=== PATIENT | female | born 1945 | race Caucasian/White ===

== ENCOUNTER 2017-09-16 09:38 | Day surgery (SDC) | payer OTHER, SELFPAY ==
[~2017-09-16] VITALS: Ht 152.4 cm; Wt 62.6 kg
[~2017-09-16 09:38] MED LIST: ALBU.083IS IH; ALBU90OI6 INH; ALPR.25; AMOCLA875 PO; ASPI81EC; AZIT250 PO; BENZ100A PO; Bactrim Ds Tab1 EACH PO; CODGUAEL PO; DICL250 PO; ERGO400 PO; FLUT.05NI; GAVILAX17 GM PO; HYDACE5 PO; HYDACE5325 PO; HYDCHL25 PO; HYDCHL50 PO; IBUP800; LAVAP17G; LISHYD2025; LISI20; LISI20 PO; LOSARTAN-HCTZ1 EACH PO; LOSHYD; LOSHYD PO; LOVA40; METF500 PO; METF850; MUPI2TC TOP; NYST100TC TOP; NYSTRI30T TOP; OMEPRAZOLE MAGN20 MG PO; ONDA8ODT MM; POLY17UD PO; PRAV20 PO; PRED20 PO; Prilosec Otc20 MG; SIMV40 PO; [UNRECOGNIZED DRUG - REMARK]; [UNRECOGNIZED DRUG - REMARK]; [UNRECOGNIZED DRUG - REMARK]
[2017-09-16] MEDS ORDERED: CEPH125SU (10:17)
[2017-09-16] MEDS ORDERED: TRAZ50 (10:18)
== END 2017-09-16 12:03 | disposition home or self-care (01) ==
LOC: ORSCSDS 09:38
PROVIDERS: Internal Medicine Gastroenterology
PROC: 0DB38ZX Excision of Lower Esophagus, Via Natural or Artificial Opening Endoscopic, Diagnostic (ICD-10-PCS; principal; 2017-09-16 10:45)
PROC: 0DB18ZX Excision of Upper Esophagus, Via Natural or Artificial Opening Endoscopic, Diagnostic (ICD-10-PCS; principal; 2017-09-16 10:45)
PROC: 0D758ZZ Dilation of Esophagus, Via Natural or Artificial Opening Endoscopic (ICD-10-PCS; principal; 2017-09-16 10:45)
DX: R13.10 Dysphagia, unspecified (principal); K64.8 Other hemorrhoids; C88.4 Extranodal marginal zone B-cell lymphoma of mucosa-associated lymphoid tissue [MALT-lymphoma]; K21.9 Gastro-esophageal reflux disease without esophagitis; E78.5 Hyperlipidemia, unspecified; I10 Essential (primary) hypertension; E11.9 Type 2 diabetes mellitus without complications; D64.9 Anemia, unspecified; E03.9 Hypothyroidism, unspecified; Z86.73 Personal history of transient ischemic attack (TIA), and cerebral infarction without residual deficits; Z87.891 Personal history of nicotine dependence; Z79.899 Other long term (current) drug therapy
CPT/HCPCS: 88305

== ENCOUNTER → 2017-11-22 | Outpatient (CLI) | payer OTHER, SELFPAY ==
[~2017-11-22] MED LIST changes: +ACIDOPHILUS1 EAC1 PO; +Augmentin 875-1 EACH PO; +CEPH125SU; +Norco 5-325 Ta1 EACH PO; +TRAZ50; +Zofran4 MG PO
== END | disposition home or self-care (01) ==
LOC: LAB 10:18
DX: A04.8 Other specified bacterial intestinal infections (principal); B96.81 Helicobacter pylori [H. pylori] as the cause of diseases classified elsewhere; R10.9 Unspecified abdominal pain
CPT/HCPCS: 87338

== ENCOUNTER 2017-11-27 11:47 | Emergency (ER) | payer OTHER, SELFPAY ==
[~2017-11-27] VITALS: Ht 152.4 cm; Wt 61.2 kg
[~2017-11-27 11:47] MED LIST changes: -ACIDOPHILUS1 EAC1 PO; -Augmentin 875-1 EACH PO; -Norco 5-325 Ta1 EACH PO; -Zofran4 MG PO
[2017-11-27 12:45] LABS: BASOPHILS ABSOLUTE AUTO 0.06 K/mm3 (0.00-0.23); BASOPHILS PERCENT AUTO 1 % (0-2); EOSINOPHILS ABSOLUTE AUTO 0.48 K/mm3 (0.00-0.68); EOSINOPHILS PERCENT AUTO 8 % (0-6); Hematocrit 36.9 % (33.0-51.0); Hemoglobin 12.5 g/dL (11.5-16.0); IMMATURE GRAN ABSOLUTE AUTO 0.02 K/mm3 (0.00-0.10); IMMATURE GRAN PERCENT AUTO 0 % (0-1); LYMPHOCYTES ABSOLUTE AUTO 1.26 K/mm3 (0.84-5.20); LYMPHOCYTES PERCENT AUTO 21 % (21-46); MONOCYTES ABSOLUTE AUTO 0.36 K/mm3 (0.16-1.47); MONOCYTES PERCENT AUTO 6 % (4-13); Mean Corpuscular HGB 28.7 pg (26.0-34.0); Mean Corpuscular HGB Conc 33.9 g/dL (31.5-36.5); Mean Corpuscular Volume 85 fL (80-100); Mean Platelet Volume 9.3 fL (9.1-12.4); NEUTROPHILS ABSOLUTE AUTO 3.85 K/mm3 (1.96-9.15); NEUTROPHILS PERCENT AUTO 64 % (41-73); Platelet Count 270 K/mm3 (150-400); RDW Coefficient Variation 13.8 % (11.7-14.2); RDW Standard Deviation 42.9 fL (35.1-46.3); Red Blood Cell Count 4.36 M/mm3 (3.80-5.20); White Blood Cell Count 6.03 K/mm3 (4.00-11.30)
[2017-11-27 12:59] LABS: Alanine Aminotransfer (ALT/SGP 59 U/L (12-78); Albumin, Blood 3.2 g/dL (3.4-5.0); Albumin/Globulin Ratio 0.6 (0.8-1.8); Alk Phos 173 U/L (50-136); Anion Gap 9 mmol/L (6-16); Aspartate Aminotrans (AST/SGOT 49 U/L (12-37); Bilirubin, Total 0.8 mg/dL (0.1-1.0); Blood Urea Nitrogen 14 mg/dL (8-24); Bun/Creatinine Ratio 21.6 (12.0-20.0); CO2, Blood 23 mmol/L (21-32); Calcium, Blood 9.2 mg/dL (8.5-10.1); Chloride, Blood 97 mmol/L (98-108); Creatinine, Blood 0.65 mg/dL (0.40-1.00); Globulin, Blood 5.7 g/dL (2.2-4.0); Glomerular Filtration Rate >60 (60-); Glucose, Blood 142 mg/dL (70-99); Potassium, Blood 3.7 mmol/L (3.5-5.5); Sodium, Blood 129 mmol/L (136-145); Total Protein, Blood 8.9 g/dL (6.4-8.2); Troponin I <0.015 ng/mL (0.000-0.040)
[2017-11-27] MEDS ORDERED: Zofran4 MG PO (13:51)
[2017-11-27] MEDS ORDERED: Norco 5-325 Ta1 EACH PO (14:08)
== END 2017-11-27 14:10 | disposition home or self-care (01) ==
LOC: ER 11:47
PROVIDERS: Emergency Medicine
DX: R10.10 Upper abdominal pain, unspecified (principal); C16.9 Malignant neoplasm of stomach, unspecified; I10 Essential (primary) hypertension; Z79.899 Other long term (current) drug therapy
CPT/HCPCS: 36415; 80053; 82272; 83690; 84484; 85025; 93005; 93010; 96361; 96374; 99283; J3010; J7120

== ENCOUNTER 2017-11-27 21:11 | Inpatient (IN) | payer OTHER, SELFPAY ==
[~2017-11-27] VITALS: Ht 152.4 cm; Wt 60.4 kg
[~2017-11-27 21:11] MED LIST changes: +Norco 5-325 Ta1 EACH PO; +Zofran4 MG PO
[2017-11-27 22:38] LABS: BASOPHILS ABSOLUTE AUTO 0.06 K/mm3 (0.00-0.23); BASOPHILS PERCENT AUTO 1 % (0-2); EOSINOPHILS ABSOLUTE AUTO 0.34 K/mm3 (0.00-0.68); EOSINOPHILS PERCENT AUTO 8 % (0-6); Hematocrit 33.6 % (33.0-51.0); Hemoglobin 11.5 g/dL (11.5-16.0); IMMATURE GRAN ABSOLUTE AUTO 0.01 K/mm3 (0.00-0.10); IMMATURE GRAN PERCENT AUTO 0 % (0-1); LYMPHOCYTES ABSOLUTE AUTO 1.32 K/mm3 (0.84-5.20); LYMPHOCYTES PERCENT AUTO 30 % (21-46); MONOCYTES ABSOLUTE AUTO 0.39 K/mm3 (0.16-1.47); MONOCYTES PERCENT AUTO 9 % (4-13); Mean Corpuscular HGB 28.8 pg (26.0-34.0); Mean Corpuscular HGB Conc 34.2 g/dL (31.5-36.5); Mean Corpuscular Volume 84 fL (80-100); Mean Platelet Volume 9.3 fL (9.1-12.4); NEUTROPHILS ABSOLUTE AUTO 2.33 K/mm3 (1.96-9.15); NEUTROPHILS PERCENT AUTO 52 % (41-73); Platelet Count 266 K/mm3 (150-400); RDW Coefficient Variation 13.9 % (11.7-14.2); RDW Standard Deviation 42.8 fL (35.1-46.3); White Blood Cell Count 4.45 K/mm3 (4.00-11.30)
[2017-11-27 22:53] LABS: Alanine Aminotransfer (ALT/SGP 50 U/L (12-78); Albumin, Blood 2.8 g/dL (3.4-5.0); Albumin/Globulin Ratio 0.5 (0.8-1.8); Alk Phos 144 U/L (50-136); Anion Gap 7 mmol/L (6-16); Aspartate Aminotrans (AST/SGOT 34 U/L (12-37); Bilirubin, Total 0.6 mg/dL (0.1-1.0); Blood Urea Nitrogen 13 mg/dL (8-24); CO2, Blood 25 mmol/L (21-32); Calcium, Blood 8.8 mg/dL (8.5-10.1); Chloride, Blood 102 mmol/L (98-108); Creatinine, Blood 0.72 mg/dL (0.40-1.00); Globulin, Blood 5.1 g/dL (2.2-4.0); Glomerular Filtration Rate >60 (60-); Glucose, Blood 109 mg/dL (70-99); Potassium, Blood 3.8 mmol/L (3.5-5.5); Sodium, Blood 134 mmol/L (136-145); Total Protein, Blood 7.9 g/dL (6.4-8.2)
[2017-11-29 04:54] LABS: BASOPHILS ABSOLUTE AUTO 0.05 K/mm3 (0.00-0.23); BASOPHILS PERCENT AUTO 1 % (0-2); EOSINOPHILS ABSOLUTE AUTO 0.23 K/mm3 (0.00-0.68); EOSINOPHILS PERCENT AUTO 6 % (0-6); Hematocrit 33.6 % (33.0-51.0); Hemoglobin 11.1 g/dL (11.5-16.0); IMMATURE GRAN PERCENT AUTO 0 % (0-1); LYMPHOCYTES ABSOLUTE AUTO 0.99 K/mm3 (0.84-5.20); LYMPHOCYTES PERCENT AUTO 27 % (21-46); MONOCYTES ABSOLUTE AUTO 0.27 K/mm3 (0.16-1.47); MONOCYTES PERCENT AUTO 7 % (4-13); Mean Corpuscular HGB 28.5 pg (26.0-34.0); Mean Corpuscular Volume 86 fL (80-100); Mean Platelet Volume 9.5 fL (9.1-12.4); NEUTROPHILS ABSOLUTE AUTO 2.19 K/mm3 (1.96-9.15); NEUTROPHILS PERCENT AUTO 59 % (41-73); Platelet Count 218 K/mm3 (150-400); RDW Coefficient Variation 14.3 % (11.7-14.2); RDW Standard Deviation 44.9 fL (35.1-46.3); White Blood Cell Count 3.73 K/mm3 (4.00-11.30)
[2017-11-29 05:13] LABS: Anion Gap 8 mmol/L (6-16); Blood Urea Nitrogen 6 mg/dL (8-24); Bun/Creatinine Ratio 8.7 (12.0-20.0); CO2, Blood 24 mmol/L (21-32); Calcium, Blood 8.5 mg/dL (8.5-10.1); Chloride, Blood 107 mmol/L (98-108); Creatinine, Blood 0.69 mg/dL (0.40-1.00); Glomerular Filtration Rate >60 (60-); Glucose, Blood 95 mg/dL (70-99); Potassium, Blood 3.7 mmol/L (3.5-5.5); Sodium, Blood 139 mmol/L (136-145)
[2017-11-29] MEDS ORDERED: ACIDOPHILUS1 EAC1 PO (14:30)
[2017-11-29] MEDS ORDERED: Augmentin 875-1 EACH PO (14:31)
== END 2017-11-29 14:50 | disposition home or self-care (01) | DRG 392 ==
LOC: ER 21:11 → MEDS 21:12 → ER 11-28 02:38 → MEDS 11-28 02:46 → ENPENDDIS 11-29 14:14 → MEDS 11-29 14:50
PROVIDERS: Emergency Medicine; Internal Medicine
DX: K52.9 Noninfective gastroenteritis and colitis, unspecified (principal); C16.9 Malignant neoplasm of stomach, unspecified; E87.1 Hypo-osmolality and hyponatremia; I10 Essential (primary) hypertension; E78.5 Hyperlipidemia, unspecified; R13.10 Dysphagia, unspecified; Z90.49 Acquired absence of other specified parts of digestive tract; Z87.891 Personal history of nicotine dependence; Z80.0 Family history of malignant neoplasm of digestive organs; Z79.899 Other long term (current) drug therapy
CPT/HCPCS: 36415; 74177; 80048; 80053; 83605; 83690; 83735; 85025; 96361; 96365; 96366; 96367; 96375; 99285; G0378; J0744; J2765; J7030; Q9967

== ENCOUNTER 2017-12-18 21:16 | Emergency (ER) | payer OTHER, SELFPAY ==
[~2017-12-18] VITALS: Ht 152.4 cm; Wt 59.9 kg
[~2017-12-18 21:16] MED LIST changes: +ACIDOPHILUS1 EAC1 PO; +Augmentin 875-1 EACH PO
[2017-12-18] MEDS ORDERED: BACL10 PO (21:23)
[2017-12-18] MEDS ORDERED: Prednisone20 MG PO (21:39)
== END 2017-12-18 21:38 | disposition home or self-care (01) ==
LOC: ER 21:16
DX: L50.1 Idiopathic urticaria (principal); Z79.899 Other long term (current) drug therapy; I10 Essential (primary) hypertension; Z87.891 Personal history of nicotine dependence
CPT/HCPCS: 99283; Q0163

== ENCOUNTER 2018-02-21 14:05 | Emergency (ER) | payer OTHER, SELFPAY ==
[~2018-02-21] VITALS: Ht 152.4 cm; Wt 59.9 kg
[~2018-02-21 14:05] MED LIST changes: +BACL10 PO; +ONDA4 PO; +Prednisone20 MG PO
[2018-02-21] MEDS ORDERED: CIPRO500 MG PO (14:32)
[2018-02-21 15:08] LABS: BASOPHILS ABSOLUTE AUTO 0.04 K/mm3 (0.00-0.23); BASOPHILS PERCENT AUTO 1 % (0-2); EOSINOPHILS ABSOLUTE AUTO 0.17 K/mm3 (0.00-0.68); EOSINOPHILS PERCENT AUTO 4 % (0-6); Hematocrit 34.7 % (33.0-51.0); Hemoglobin 11.8 g/dL (11.5-16.0); IMMATURE GRAN PERCENT AUTO 0 % (0-1); LYMPHOCYTES PERCENT AUTO 38 % (21-46); MONOCYTES PERCENT AUTO 9 % (4-13); Mean Corpuscular HGB 29.4 pg (26.0-34.0); Mean Corpuscular Volume 86 fL (80-100); Mean Platelet Volume 9.3 fL (9.1-12.4); NEUTROPHILS ABSOLUTE AUTO 2.06 K/mm3 (1.96-9.15); NEUTROPHILS PERCENT AUTO 48 % (41-73); Platelet Count 164 K/mm3 (150-400); RDW Coefficient Variation 13.9 % (11.7-14.2); RDW Standard Deviation 43.9 fL (35.1-46.3); Red Blood Cell Count 4.02 M/mm3 (3.80-5.20); White Blood Cell Count 4.27 K/mm3 (4.00-11.30)
[2018-02-21 15:36] LABS: Alanine Aminotransfer (ALT/SGP 39 U/L (12-78); Albumin/Globulin Ratio 0.6 (0.8-1.8); Alk Phos 121 U/L (50-136); Anion Gap 7 mmol/L (6-16); Aspartate Aminotrans (AST/SGOT 39 U/L (12-37); Bilirubin, Total 0.7 mg/dL (0.1-1.0); Blood Urea Nitrogen 12 mg/dL (8-24); Bun/Creatinine Ratio 17.6 (12.0-20.0); CO2, Blood 26 mmol/L (21-32); Calcium, Blood 8.9 mg/dL (8.5-10.1); Chloride, Blood 98 mmol/L (98-108); Creatinine, Blood 0.68 mg/dL (0.40-1.00); Glomerular Filtration Rate >60 (60-); Glucose, Blood 113 mg/dL (70-99); Potassium, Blood 3.9 mmol/L (3.5-5.5); Sodium, Blood 131 mmol/L (136-145)
== END 2018-02-21 16:49 | disposition home or self-care (01) ==
LOC: ER 14:05
PROVIDERS: Internal Medicine
DX: G89.18 Other acute postprocedural pain (principal); R10.11 Right upper quadrant pain; K59.00 Constipation, unspecified; I10 Essential (primary) hypertension; Z79.899 Other long term (current) drug therapy; Z87.891 Personal history of nicotine dependence
CPT/HCPCS: 36415; 74177; 80053; 83690; 85025; 99284-25; Q9967

== ENCOUNTER → 2018-09-21 | Outpatient (CLI) | payer OTHER ==
[~2018-09-21] MED LIST changes: +CIPRO500 MG PO
== END | disposition home or self-care (01) ==
LOC: LAB 13:59 → LAB SHORT 13:59
DX: N39.0 Urinary tract infection, site not specified (principal)
CPT/HCPCS: 87077; 87086; 87147; 87184; 87186

== ENCOUNTER 2018-09-24 08:51 | Day surgery (SDC) | payer OTHER | END 2018-09-24 22:46 | disposition home or self-care (01) | LOC: US 08:51 | DX: K11.8 Other diseases of salivary glands (principal); F41.9 Anxiety disorder, unspecified; I10 Essential (primary) hypertension; Z79.899 Other long term (current) drug therapy; Z87.891 Personal history of nicotine dependence | CPT/HCPCS: 10005; 88173 ==

== ENCOUNTER 2018-12-26 03:09 | Emergency (ER) | payer OTHER ==
[~2018-12-26] VITALS: Ht 154.9 cm; Wt 55.8 kg
[2018-12-26 04:55] LABS: BASOPHILS ABSOLUTE AUTO 0.03 K/mm3 (0.00-0.23); BASOPHILS PERCENT AUTO 1 % (0-2); EOSINOPHILS ABSOLUTE AUTO 0.07 K/mm3 (0.00-0.68); EOSINOPHILS PERCENT AUTO 2 % (0-6); Hematocrit 35.3 % (33.0-51.0); Hemoglobin 11.9 g/dL (11.5-16.0); IMMATURE GRAN ABSOLUTE AUTO 0.01 K/mm3 (0.00-0.10); IMMATURE GRAN PERCENT AUTO 0 % (0-1); LYMPHOCYTES ABSOLUTE AUTO 0.83 K/mm3 (0.84-5.20); LYMPHOCYTES PERCENT AUTO 20 % (21-46); MONOCYTES ABSOLUTE AUTO 0.21 K/mm3 (0.16-1.47); MONOCYTES PERCENT AUTO 5 % (4-13); Mean Corpuscular HGB 29.3 pg (26.0-34.0); Mean Corpuscular HGB Conc 33.7 g/dL (31.5-36.5); Mean Corpuscular Volume 87 fL (80-100); Mean Platelet Volume 9.6 fL (9.1-12.4); NEUTROPHILS ABSOLUTE AUTO 3.11 K/mm3 (1.96-9.15); NEUTROPHILS PERCENT AUTO 73 % (41-73); Platelet Count 179 K/mm3 (150-400); RDW Coefficient Variation 13.5 % (11.7-14.2); RDW Standard Deviation 42.7 fL (35.1-46.3); Red Blood Cell Count 4.06 M/mm3 (3.80-5.20); White Blood Cell Count 4.26 K/mm3 (4.00-11.30)
[2018-12-26 05:16] LABS: Alanine Aminotransfer (ALT/SGP 46 U/L (12-78); Albumin, Blood 2.9 g/dL (3.4-5.0); Albumin/Globulin Ratio 0.5 (0.8-1.8); Alk Phos 220 U/L (50-136); Anion Gap 5 mmol/L (6-16); Aspartate Aminotrans (AST/SGOT 42 U/L (12-37); Bilirubin, Total 0.9 mg/dL (0.1-1.0); Blood Urea Nitrogen 12 mg/dL (8-24); CO2, Blood 26 mmol/L (21-32); Chloride, Blood 100 mmol/L (98-108); Creatinine, Blood 0.75 mg/dL (0.40-1.00); Globulin, Blood 5.6 g/dL (2.2-4.0); Glomerular Filtration Rate >60 (60-); Glucose, Blood 112 mg/dL (70-99); Potassium, Blood 3.6 mmol/L (3.5-5.5); Sodium, Blood 131 mmol/L (136-145); Total Protein, Blood 8.5 g/dL (6.4-8.2)
[2018-12-26] MEDS ORDERED: PROM25 PO (09:17)
[2018-12-26] MEDS ORDERED: Roxicodone5 MG PO (09:17)
== END 2018-12-26 09:20 | disposition home or self-care (01) ==
LOC: ER 03:09
PROVIDERS: Emergency Medicine
DX: K85.90 Acute pancreatitis without necrosis or infection, unspecified (principal); I10 Essential (primary) hypertension; Z87.891 Personal history of nicotine dependence; Z98.890 Other specified postprocedural states
CPT/HCPCS: 36415; 76705; 80053; 83690; 85025; 93005; 93010; 96374; 96375; 99284-25; J1170; J2405; J2550

== ENCOUNTER 2019-08-11 21:22 | Emergency (ER) | payer OTHER ==
[~2019-08-11] VITALS: Ht 154.9 cm; Wt 55.8 kg
[~2019-08-11 21:22] MED LIST changes: +PROM25 PO; +Roxicodone5 MG PO
[2019-08-11] MEDS ORDERED: MIRALAX17 GM PO (21:44)
[2019-08-11 22:21] LABS: BASOPHILS ABSOLUTE AUTO 0.02 K/mm3 (0.00-0.23); BASOPHILS PERCENT AUTO 1 % (0-2); EOSINOPHILS ABSOLUTE AUTO 0.06 K/mm3 (0.00-0.68); EOSINOPHILS PERCENT AUTO 2 % (0-6); Hemoglobin 11.6 g/dL (11.5-16.0); IMMATURE GRAN ABSOLUTE AUTO 0.01 K/mm3 (0.00-0.10); IMMATURE GRAN PERCENT AUTO 0 % (0-1); LYMPHOCYTES ABSOLUTE AUTO 0.87 K/mm3 (0.84-5.20); LYMPHOCYTES PERCENT AUTO 24 % (21-46); MONOCYTES ABSOLUTE AUTO 0.16 K/mm3 (0.16-1.47); MONOCYTES PERCENT AUTO 4 % (4-13); Mean Corpuscular HGB 29.4 pg (26.0-34.0); Mean Corpuscular HGB Conc 33.1 g/dL (31.5-36.5); Mean Corpuscular Volume 89 fL (80-100); Mean Platelet Volume 9.5 fL (9.1-12.4); NEUTROPHILS ABSOLUTE AUTO 2.48 K/mm3 (1.96-9.15); NEUTROPHILS PERCENT AUTO 69 % (41-73); Platelet Count 232 K/mm3 (150-400); RDW Coefficient Variation 13.5 % (11.7-14.2); RDW Standard Deviation 43.9 fL (35.1-46.3); Red Blood Cell Count 3.95 M/mm3 (3.80-5.20)
[2019-08-11 22:38] LABS: Alanine Aminotransfer (ALT/SGP 73 U/L (12-78); Albumin, Blood 2.6 g/dL (3.4-5.0); Albumin/Globulin Ratio 0.4 (0.8-1.8); Alk Phos 250 U/L (50-136); Anion Gap 6 mmol/L (6-16); Aspartate Aminotrans (AST/SGOT 79 U/L (12-37); Bilirubin, Total 0.9 mg/dL (0.1-1.0); Blood Urea Nitrogen 14 mg/dL (8-24); Bun/Creatinine Ratio 18.7 (12.0-20.0); CO2, Blood 24 mmol/L (21-32); Calcium, Blood 8.8 mg/dL (8.5-10.1); Chloride, Blood 102 mmol/L (98-108); Creatinine, Blood 0.75 mg/dL (0.40-1.00); Glomerular Filtration Rate >60 (60-); Glucose, Blood 98 mg/dL (70-99); Potassium, Blood 4.2 mmol/L (3.5-5.5); Sodium, Blood 132 mmol/L (136-145); Total Protein, Blood 8.6 g/dL (6.4-8.2)
== END 2019-08-12 00:50 | disposition home or self-care (01) ==
LOC: ER 21:22
PROVIDERS: Emergency Medicine
DX: R10.13 Epigastric pain (principal); E78.00 Pure hypercholesterolemia, unspecified; I10 Essential (primary) hypertension; Z87.891 Personal history of nicotine dependence
CPT/HCPCS: 36415; 74176; 80053; 83690; 85025; 93005; 93010; 96374; 96375; 99284-25; A9270-GY; J2270; J2405; J7030

== ENCOUNTER 2019-09-18 14:45 | Emergency (ER) | payer OTHER ==
[~2019-09-18] VITALS: Ht 154.9 cm; Wt 54.9 kg
[~2019-09-18 14:45] MED LIST changes: +MIRALAX17 GM PO
[2019-09-18 16:12] LABS: Albumin, Blood 2.7 g/dL (3.4-5.0); Albumin/Globulin Ratio 0.4 (0.8-1.8); BASOPHILS ABSOLUTE AUTO 0.03 K/mm3 (0.00-0.23); BASOPHILS PERCENT AUTO 0 % (0-2); Bilirubin, Total 0.8 mg/dL (0.1-1.0); Bun/Creatinine Ratio 21.6 (12.0-20.0); Calcium, Blood 8.7 mg/dL (8.5-10.1); Creatinine, Blood 0.97 mg/dL (0.40-1.00); EOSINOPHILS ABSOLUTE AUTO 0.06 K/mm3 (0.00-0.68); EOSINOPHILS PERCENT AUTO 1 % (0-6); Globulin, Blood 6.5 g/dL (2.2-4.0); Hematocrit 36.7 % (33.0-51.0); Hemoglobin 12.5 g/dL (11.5-16.0); IMMATURE GRAN ABSOLUTE AUTO 0.02 K/mm3 (0.00-0.10); IMMATURE GRAN PERCENT AUTO 0 % (0-1); LYMPHOCYTES ABSOLUTE AUTO 1.35 K/mm3 (0.84-5.20); LYMPHOCYTES PERCENT AUTO 18 % (21-46); MONOCYTES ABSOLUTE AUTO 0.33 K/mm3 (0.16-1.47); MONOCYTES PERCENT AUTO 4 % (4-13); Mean Corpuscular HGB 29.3 pg (26.0-34.0); Mean Corpuscular HGB Conc 34.1 g/dL (31.5-36.5); Mean Corpuscular Volume 86 fL (80-100); NEUTROPHILS ABSOLUTE AUTO 5.93 K/mm3 (1.96-9.15); NEUTROPHILS PERCENT AUTO 77 % (41-73); Potassium, Blood 4.3 mmol/L (3.5-5.5); RDW Coefficient Variation 13.3 % (11.7-14.2); RDW Standard Deviation 41.9 fL (35.1-46.3); Red Blood Cell Count 4.27 M/mm3 (3.80-5.20); Total Protein, Blood 9.2 g/dL (6.4-8.2); White Blood Cell Count 7.72 K/mm3 (4.00-11.30)
[2019-09-18 16:27] LABS: Mean Platelet Volume 9.7 fL (9.1-12.4); Platelet Count 216 K/mm3 (150-400)
== END 2019-09-18 17:08 | disposition home or self-care (01) ==
LOC: ER 14:45
PROVIDERS: Nurse Practitioner
DX: J40 Bronchitis, not specified as acute or chronic (principal); I10 Essential (primary) hypertension; Z88.5 Allergy status to narcotic agent; Z79.899 Other long term (current) drug therapy; Z87.891 Personal history of nicotine dependence
CPT/HCPCS: 71045; 80053; 85025; 93005; 93010; 99284-25

== ENCOUNTER → 2020-07-24 | Outpatient (CLI) | payer OTHER, SELFPAY ==
[~2020-07-24] MED LIST changes: +VALACYCLOVIR1000 M1 PO
[2020-07-24 18:56] LABS: BASOPHILS ABSOLUTE AUTO 0.06 K/mm3 (0.00-0.23); BASOPHILS PERCENT AUTO 2 % (0-2); EOSINOPHILS ABSOLUTE AUTO 0.28 K/mm3 (0.00-0.68); EOSINOPHILS PERCENT AUTO 8 % (0-6); Hematocrit 35.5 % (33.0-51.0); Hemoglobin 11.9 g/dL (11.5-16.0); IMMATURE GRAN ABSOLUTE AUTO 0.01 K/mm3 (0.00-0.10); IMMATURE GRAN PERCENT AUTO 0 % (0-1); LYMPHOCYTES ABSOLUTE AUTO 1.18 K/mm3 (0.84-5.20); LYMPHOCYTES PERCENT AUTO 34 % (21-46); MONOCYTES ABSOLUTE AUTO 0.28 K/mm3 (0.16-1.47); MONOCYTES PERCENT AUTO 8 % (4-13); Mean Corpuscular HGB 29.1 pg (26.0-34.0); Mean Corpuscular HGB Conc 33.5 g/dL (31.5-36.5); Mean Corpuscular Volume 87 fL (80-100); Mean Platelet Volume 9.6 fL (9.1-12.4); NEUTROPHILS ABSOLUTE AUTO 1.62 K/mm3 (1.96-9.15); NEUTROPHILS PERCENT AUTO 47 % (41-73); Platelet Count 286 K/mm3 (150-400); RDW Coefficient Variation 13.8 % (11.7-14.2); RDW Standard Deviation 43.4 fL (35.1-46.3); Red Blood Cell Count 4.09 M/mm3 (3.80-5.20); White Blood Cell Count 3.43 K/mm3 (4.00-11.30)
[2020-07-24 19:09] LABS: Alanine Aminotransfer (ALT/SGP 35 U/L (12-78); Albumin, Blood 3.8 g/dL (3.4-5.0); Albumin/Globulin Ratio 0.8 (0.8-1.8); Alk Phos 105 U/L (50-136); Anion Gap 5 mmol/L (6-16); Aspartate Aminotrans (AST/SGOT 30 U/L (12-37); Bilirubin, Total 0.6 mg/dL (0.1-1.0); Blood Urea Nitrogen 14 mg/dL (8-24); Bun/Creatinine Ratio 15.9 (12.0-20.0); CO2, Blood 26 mmol/L (21-32); Calcium, Blood 9.2 mg/dL (8.5-10.1); Chloride, Blood 100 mmol/L (98-108); Creatinine, Blood 0.88 mg/dL (0.40-1.00); Globulin, Blood 4.9 g/dL (2.2-4.0); Glomerular Filtration Rate >60 (60-); Glucose, Blood 104 mg/dL (70-99); Sodium, Blood 131 mmol/L (136-145); Total Protein, Blood 8.7 g/dL (6.4-8.2)
== END | disposition home or self-care (01) ==
LOC: LAB 18:50 → LAB SHORT 18:50
PROVIDERS: Nurse Practitioner Family
DX: R10.31 Right lower quadrant pain (principal); R10.32 Left lower quadrant pain
CPT/HCPCS: 80053; 83690; 85025; 87077; 87086; 87186

== ENCOUNTER 2020-09-29 23:08 | Emergency (ER) | payer OTHER ==
[~2020-09-29] VITALS: Ht 152.4 cm; Wt 59.0 kg
[~2020-09-29 23:08] MED LIST changes: -VALACYCLOVIR1000 M1 PO
[2020-09-29 23:41] LABS: BASOPHILS ABSOLUTE AUTO 0.07 K/mm3 (0.00-0.23); BASOPHILS PERCENT AUTO 2 % (0-2); EOSINOPHILS ABSOLUTE AUTO 0.37 K/mm3 (0.00-0.68); EOSINOPHILS PERCENT AUTO 9 % (0-6); Hematocrit 34.7 % (33.0-51.0); Hemoglobin 11.8 g/dL (11.5-16.0); IMMATURE GRAN PERCENT AUTO 0 % (0-1); LYMPHOCYTES ABSOLUTE AUTO 0.94 K/mm3 (0.84-5.20); LYMPHOCYTES PERCENT AUTO 24 % (21-46); MONOCYTES ABSOLUTE AUTO 0.33 K/mm3 (0.16-1.47); MONOCYTES PERCENT AUTO 8 % (4-13); Mean Corpuscular HGB 29.8 pg (26.0-34.0); Mean Corpuscular Volume 88 fL (80-100); Mean Platelet Volume 9.2 fL (9.1-12.4); NEUTROPHILS ABSOLUTE AUTO 2.23 K/mm3 (1.96-9.15); NEUTROPHILS PERCENT AUTO 57 % (41-73); Platelet Count 245 K/mm3 (150-400); RDW Coefficient Variation 13.6 % (11.7-14.2); RDW Standard Deviation 43.8 fL (35.1-46.3); Red Blood Cell Count 3.96 M/mm3 (3.80-5.20); White Blood Cell Count 3.94 K/mm3 (4.00-11.30)
[2020-09-29 23:48] LABS: Source, Urine Clean Catch
[2020-09-29 23:50] LABS: Bilirubin, Urine Neg (Neg); Blood, Urine 1+ (Neg); Glucose Qualitative, Urine Neg (Neg); Ketones, Urine Neg (Neg); Leukocyte Esterase, Urine 1+ (Neg); Nitrite, Urine Neg (Neg); Protein, Urine Neg (Neg); Urobilinogen, Urine NORM (Normal)
[2020-09-29 23:52] LABS: Appearance, Urine Clear (Clear); Color, Urine Yellow (P-Yellow)
[2020-09-29 23:58] LABS: Bacteria Not Seen /hpf; Red Blood Cells, Urine 0-2 /hpf (0-2); Squamous Epithelial Cells Not Seen /hpf (Few); White Blood Cells, Urine Rare /hpf (0-5)
[2020-09-30] LABS: Alanine Aminotransfer (ALT/SGP 31 U/L (12-78); Albumin, Blood 3.2 g/dL (3.4-5.0); Albumin/Globulin Ratio 0.7 (0.8-1.8); Alk Phos 90 U/L (50-136); Anion Gap 3 mmol/L (6-16); Aspartate Aminotrans (AST/SGOT 19 U/L (12-37); Bilirubin, Total 0.7 mg/dL (0.1-1.0); Blood Urea Nitrogen 16 mg/dL (8-24); Bun/Creatinine Ratio 20.9 (12.0-20.0); CO2, Blood 27 mmol/L (21-32); Chloride, Blood 104 mmol/L (98-108); Creatinine, Blood 0.76 mg/dL (0.40-1.00); Globulin, Blood 4.9 g/dL (2.2-4.0); Glomerular Filtration Rate >60 (60-); Glucose, Blood 91 mg/dL (70-99); Potassium, Blood 4.2 mmol/L (3.5-5.5); Sodium, Blood 134 mmol/L (136-145); Total Protein, Blood 8.1 g/dL (6.4-8.2)
[2020-10-01] MEDS ORDERED: VALACYCLOVIR1000 M1 PO (00:56)
== END 2020-09-30 05:06 | disposition home or self-care (01) ==
LOC: ER 23:08
PROVIDERS: Emergency Medicine
DX: K59.00 Constipation, unspecified (principal); Z79.899 Other long term (current) drug therapy; Z87.891 Personal history of nicotine dependence
CPT/HCPCS: 36415; 74176; 80053; 81001; 83690; 85025; 93005; 93010; 96374; 99284-25; A9270; J1885

== ENCOUNTER → 2020-09-29 | Outpatient (CLI) | payer OTHER | LOC: LAB SHORT 14:27 → LAB 14:27 | DX: R30.0 Dysuria (principal) | CPT/HCPCS: 87077; 87086; 87186 ==

== ENCOUNTER 2020-09-30 22:04 | Emergency (ER) | payer OTHER ==
[~2020-09-30] VITALS: Ht 152.4 cm; Wt 59.0 kg
[2020-10-01] MEDS ORDERED: VALACYCLOVIR1000 M1 PO (00:56)
== END 2020-10-01 01:18 | disposition home or self-care (01) ==
LOC: ER 22:04
DX: B02.9 Zoster without complications (principal); Z79.899 Other long term (current) drug therapy
CPT/HCPCS: 99283; A9270

== ENCOUNTER → 2021-04-13 | Outpatient (CLI) | payer OTHER ==
[~2021-04-13] MED LIST changes: +VALACYCLOVIR1000 M1 PO
== END ==
LOC: LAB SHORT 13:00 → LAB 13:00
DX: R30.0 Dysuria (principal)
CPT/HCPCS: 87077; 87086; 87186

== ENCOUNTER → 2021-05-25 | Outpatient (CLI) | payer OTHER ==
[2021-05-25 12:23] LABS: Source, Urine Clean Catch
[2021-05-25 13:08] LABS: Appearance, Urine Cloudy (Clear); Bilirubin, Urine Neg (Neg); Blood, Urine 2+ (Neg); Color, Urine Yellow (P-Yellow); Glucose Qualitative, Urine Neg (Neg); Ketones, Urine Neg (Neg); Leukocyte Esterase, Urine 3+ (Neg); Nitrite, Urine Pos (Neg); Protein, Urine 1+ (Neg); Urobilinogen, Urine NORM (Normal)
[2021-05-25 13:21] LABS: White Blood Cells, Urine TNTC /hpf (0-5)
[2021-05-25 13:22] LABS: Bacteria Many /hpf; Squamous Epithelial Cells Rare /hpf (Few)
== END | disposition home or self-care (01) ==
LOC: LAB SHORT 12:21
PROVIDERS: Family Medicine
DX: E11.65 Type 2 diabetes mellitus with hyperglycemia (principal)
CPT/HCPCS: 81001; 87077; 87086; 87186

== ENCOUNTER 2021-06-13 22:55 | Emergency (ER) | payer OTHER ==
[~2021-06-13] VITALS: Ht 167.6 cm; Wt 74.8 kg
[2021-06-13 23:59] LABS: BASOPHILS ABSOLUTE AUTO 0.03 K/mm3 (0.00-0.23); BASOPHILS PERCENT AUTO 1 % (0-2); EOSINOPHILS ABSOLUTE AUTO 0.07 K/mm3 (0.00-0.68); EOSINOPHILS PERCENT AUTO 2 % (0-6); Hematocrit 35.3 % (33.0-51.0); Hemoglobin 12.2 g/dL (11.5-16.0); IMMATURE GRAN ABSOLUTE AUTO 0.02 K/mm3 (0.00-0.10); IMMATURE GRAN PERCENT AUTO 1 % (0-1); LYMPHOCYTES ABSOLUTE AUTO 1.03 K/mm3 (0.84-5.20); LYMPHOCYTES PERCENT AUTO 28 % (21-46); MONOCYTES ABSOLUTE AUTO 0.28 K/mm3 (0.16-1.47); MONOCYTES PERCENT AUTO 8 % (4-13); Mean Corpuscular HGB 29.1 pg (26.0-34.0); Mean Corpuscular HGB Conc 34.6 g/dL (31.5-36.5); Mean Corpuscular Volume 84 fL (80-100); Mean Platelet Volume 9.2 fL (9.1-12.4); NEUTROPHILS ABSOLUTE AUTO 2.27 K/mm3 (1.96-9.15); NEUTROPHILS PERCENT AUTO 61 % (41-73); Platelet Count 226 K/mm3 (150-400); RDW Coefficient Variation 13.7 % (11.7-14.2); RDW Standard Deviation 42.5 fL (35.1-46.3); Red Blood Cell Count 4.19 M/mm3 (3.80-5.20)
[2021-06-14 01:06] LABS: Alanine Aminotransfer (ALT/SGP 41 U/L (12-78); Albumin, Blood 3.2 g/dL (3.4-5.0); Albumin/Globulin Ratio 0.7 (0.8-1.8); Alk Phos 173 U/L (50-136); Anion Gap 7 mmol/L (6-16); Aspartate Aminotrans (AST/SGOT 44 U/L (12-37); Bilirubin, Total 0.8 mg/dL (0.1-1.0); Blood Urea Nitrogen 13 mg/dL (8-24); Bun/Creatinine Ratio 15.3 (12.0-20.0); CO2, Blood 24 mmol/L (21-32); Calcium, Blood 8.9 mg/dL (8.5-10.1); Chloride, Blood 97 mmol/L (98-108); Creatinine, Blood 0.85 mg/dL (0.40-1.00); Globulin, Blood 4.8 g/dL (2.2-4.0); Glomerular Filtration Rate >60 (60-); Glucose, Blood 96 mg/dL (70-99); Potassium, Blood 4.1 mmol/L (3.5-5.5); Sodium, Blood 128 mmol/L (136-145)
[2021-06-14 02:07] LABS: Free Thyroxine 0.94 ng/dL (0.70-1.60); Triiodothyronine, Free 1.59 pg/mL (2.18-3.98)
== END 2021-06-14 04:13 | disposition home or self-care (01) ==
LOC: ER 22:55
PROVIDERS: Student in an Organized Health Care Education/Training Program
DX: U07.1 COVID-19 (principal); S16.1XXA Strain of muscle, fascia and tendon at neck level, initial encounter; E87.1 Hypo-osmolality and hyponatremia; Z79.899 Other long term (current) drug therapy; I10 Essential (primary) hypertension; E78.5 Hyperlipidemia, unspecified; Z87.891 Personal history of nicotine dependence; W06.XXXA Fall from bed, initial encounter
CPT/HCPCS: 36415; 70450; 71045; 72125; 80053; 84439; 84443; 84481; 85025; 93005; 93010; A9270; J1885; J2765; J7030

== ENCOUNTER → 2021-12-12 | Outpatient (CLI) | payer OTHER ==
[2021-12-12 14:07] LABS: Source, Urine Clean Catch
[2021-12-12 16:02] LABS: Appearance, Urine Hazy (Clear); Bilirubin, Urine Neg (Neg); Blood, Urine 1+ (Neg); Color, Urine Yellow (P-Yellow); Glucose Qualitative, Urine Neg (Neg); Ketones, Urine Neg (Neg); Leukocyte Esterase, Urine 3+ (Neg); Nitrite, Urine Pos (Neg); Protein, Urine Neg (Neg); Urobilinogen, Urine NORM (Normal)
[2021-12-12 16:32] LABS: White Blood Cells, Urine TNTC /hpf (0-5)
[2021-12-12 16:33] LABS: Bacteria Many /hpf; Mucus Light (0-Heavy); Red Blood Cells, Urine 0-2 /hpf (0-2); Squamous Epithelial Cells Few /hpf (Few); Transitional Epithelial Cells Few /hpf (0-Rare)
== END | disposition home or self-care (01) ==
LOC: LAB SHORT 14:00
PROVIDERS: Family Medicine
DX: R30.0 Dysuria (principal)
CPT/HCPCS: 81001; 87077; 87086; 87186

== ENCOUNTER 2022-01-26 13:12 | Emergency (ER) | payer OTHER ==
[~2022-01-26] VITALS: Ht 152.4 cm; Wt 54.4 kg
[~2022-01-26 13:12] MED LIST changes: +CITRATE OF MAG296 M1 PO; +DOCUZEN 8.6-501 EACH PO
[2022-01-26 13:36] LABS: Source, Urine Clean Catch
[2022-01-26 13:39] LABS: Appearance, Urine Turbid (Clear); Bilirubin, Urine Neg (Neg); Blood, Urine 3+ (Neg); Color, Urine Yellow (P-Yellow); Glucose Qualitative, Urine Neg (Neg); Ketones, Urine Neg (Neg); Leukocyte Esterase, Urine 3+ (Neg); Nitrite, Urine Neg (Neg); Protein, Urine 3+ (Neg); Specific Gravity, Urine 1.025 (1.003-1.022); Urobilinogen, Urine NORM (Normal)
[2022-01-26 13:48] LABS: Bacteria Many /hpf; Red Blood Cells, Urine 25-50 /hpf (0-2); Squamous Epithelial Cells Few /hpf (Few); White Blood Cells, Urine TNTC /hpf (0-5)
[2022-01-26] MEDS ORDERED: CEFD300 PO (14:07)
== END 2022-01-26 14:55 | disposition home or self-care (01) ==
LOC: ER 13:12
PROVIDERS: Physician Assistant
DX: N39.0 Urinary tract infection, site not specified (principal); I10 Essential (primary) hypertension; E78.5 Hyperlipidemia, unspecified; Z79.899 Other long term (current) drug therapy; Z87.891 Personal history of nicotine dependence; Z16.19 Resistance to other specified beta lactam antibiotics
CPT/HCPCS: 81001; A9270

== ENCOUNTER 2022-06-05 15:45 | Emergency (ER) | payer OTHER ==
[~2022-06-05] VITALS: Ht 152.4 cm; Wt 54.4 kg
[~2022-06-05 15:45] MED LIST changes: +CEFD300 PO
[2022-06-05] MEDS ORDERED: MAGCIT300 PO (21:53)
[2022-06-05] MEDS ORDERED: BISA5EC PO (21:53)
[2022-06-07] MEDS ORDERED: Woman's Laxative5 MG PO (15:10)
[2022-06-07] MEDS ORDERED: Hydroxychloroq200 MG PO (15:10)
[2022-06-07] MEDS ORDERED: Miralax17 GM PO (17:25)
[2022-06-07] MEDS ORDERED: Kristalose20 GM PO (17:25)
== END 2022-06-06 01:02 | disposition home or self-care (01) ==
LOC: ER 15:45
DX: K56.41 Fecal impaction (principal); R33.9 Retention of urine, unspecified; I10 Essential (primary) hypertension; Z79.899 Other long term (current) drug therapy
CPT/HCPCS: 51798; 74018; A9270; J2060; J2405; J3010

== ENCOUNTER 2022-06-07 10:37 | Emergency (ER) | payer OTHER ==
[~2022-06-07] VITALS: Ht 152.4 cm; Wt 56.7 kg
[~2022-06-07 10:37] MED LIST changes: +BISA5EC PO; +MAGCIT300 PO
[2022-06-07] MEDS ORDERED: Hydroxychloroq200 MG PO (15:10)
[2022-06-07] MEDS ORDERED: Woman's Laxative5 MG PO (15:10)
[2022-06-07 17:20] LABS: Chloride (POC) 99 mmol/L (98-108); Creatinine (POC) 0.6 mg/dL (0.6-1.0); Glucose (ISTAT POC) 102 mg/dL (70-99); Hemoglobin (POC) 12.2 g/dL (12.0-16.0); Potassium (POC) 4.1 mmol/L (3.5-5.5); Sodium (POC) 128 mmol/L (135-148); Total CO2 (POC) 21 mmol/L (21-32)
[2022-06-07] MEDS ORDERED: Miralax17 GM PO (17:25)
[2022-06-07] MEDS ORDERED: Kristalose20 GM PO (17:25)
== END 2022-06-07 17:47 | disposition home or self-care (01) ==
LOC: ER 10:37
PROVIDERS: Emergency Medicine
DX: K59.09 Other constipation (principal); K62.89 Other specified diseases of anus and rectum; K92.1 Melena; Z79.899 Other long term (current) drug therapy
CPT/HCPCS: 74018; 80047; 85014; A9270

== ENCOUNTER → 2022-07-25 | Outpatient (CLI) | payer OTHER ==
[~2022-07-25] MED LIST changes: +Hydroxychloroq200 MG PO; +Kristalose20 GM PO; +Miralax17 GM PO; +Woman's Laxative5 MG PO
[2022-07-25 10:07] LABS: Source, Urine Clean Catch
[2022-07-25 12:07] LABS: Appearance, Urine Cloudy (Clear); Bilirubin, Urine Neg (Neg); Blood, Urine 2+ (Neg); Color, Urine Yellow (P-Yellow); Glucose Qualitative, Urine Neg (Neg); Ketones, Urine Neg (Neg); Leukocyte Esterase, Urine 3+ (Neg); Nitrite, Urine Pos (Neg); Protein, Urine 2+ (Neg); Urobilinogen, Urine NORM (Normal)
[2022-07-25 12:29] LABS: Bacteria Mod /hpf; Squamous Epithelial Cells Few /hpf (Few); White Blood Cells, Urine TNTC /hpf (0-5)
== END | disposition home or self-care (01) ==
LOC: LAB SHORT 09:45 → LAB 09:45
PROVIDERS: Family Medicine
DX: R39.15 Urgency of urination (principal)
CPT/HCPCS: 81001; 87077; 87086; 87186

== ENCOUNTER → 2022-08-22 | Outpatient (CLI) | payer OTHER ==
[2022-08-22 11:48] LABS: Appearance, Urine Clear (Clear); Bilirubin, Urine Neg (Neg); Blood, Urine Neg (Neg); Color, Urine Yellow (P-Yellow); Glucose Qualitative, Urine Neg (Neg); Ketones, Urine Neg (Neg); Leukocyte Esterase, Urine Neg (Neg); Nitrite, Urine Neg (Neg); Protein, Urine Neg (Neg); Urobilinogen, Urine NORM (Normal)
== END ==
LOC: LAB SHORT 09:47 → LAB 09:47
PROVIDERS: Internal Medicine Rheumatology
DX: M32.9 Systemic lupus erythematosus, unspecified (principal)
CPT/HCPCS: 81003

== ENCOUNTER 2023-02-05 20:03 | Emergency (ER) | payer OTHER ==
[~2023-02-05] VITALS: Ht 152.4 cm; Wt 56.7 kg
[2023-02-05 20:24] VITALS: BP 170/73
== END 2023-02-05 21:28 | disposition home or self-care (01) ==
LOC: ER 20:03
DX: M79.89 Other specified soft tissue disorders (principal); R60.0 Localized edema; I10 Essential (primary) hypertension; E78.00 Pure hypercholesterolemia, unspecified; Z79.899 Other long term (current) drug therapy
CPT/HCPCS: 99283

== ENCOUNTER → 2023-05-25 | Outpatient (CLI) | payer OTHER ==
[2023-05-25 11:37] LABS: BASOPHILS ABSOLUTE AUTO 0.02 K/mm3 (0.00-0.23); BASOPHILS PERCENT AUTO 1 % (0-2); EOSINOPHILS ABSOLUTE AUTO 0.06 K/mm3 (0.00-0.68); EOSINOPHILS PERCENT AUTO 2 % (0-6); Hemoglobin 11.4 g/dL (11.5-16.0); IMMATURE GRAN PERCENT AUTO 0 % (0-1); LYMPHOCYTES ABSOLUTE AUTO 0.69 K/mm3 (0.84-5.20); LYMPHOCYTES PERCENT AUTO 26 % (21-46); MONOCYTES ABSOLUTE AUTO 0.16 K/mm3 (0.16-1.47); MONOCYTES PERCENT AUTO 6 % (4-13); Mean Corpuscular HGB 30.2 pg (26.0-34.0); Mean Corpuscular HGB Conc 34.5 g/dL (31.5-36.5); Mean Corpuscular Volume 87 fL (80-100); Mean Platelet Volume 10.7 fL (9.1-12.4); NEUTROPHILS ABSOLUTE AUTO 1.71 K/mm3 (1.96-9.15); NEUTROPHILS PERCENT AUTO 65 % (41-73); Platelet Count 169 K/mm3 (150-400); RDW Coefficient Variation 14.2 % (11.7-14.2); RDW Standard Deviation 45.2 fL (35.1-46.3); Red Blood Cell Count 3.78 M/mm3 (3.80-5.20); White Blood Cell Count 2.64 K/mm3 (4.00-11.30)
[2023-05-25 11:49] LABS: Albumin/Globulin Ratio 0.6 (0.8-1.8); Bilirubin, Total 0.8 mg/dL (0.1-1.0); Bun/Creatinine Ratio 15.4 (12.0-20.0); Calcium, Blood 9.3 mg/dL (8.5-10.1); Creatinine, Blood 0.78 mg/dL (0.40-1.00); Globulin, Blood 5.1 g/dL (2.2-4.0); Potassium, Blood 4.2 mmol/L (3.5-5.5); Total Protein, Blood 8.1 g/dL (6.4-8.2)
== END | disposition home or self-care (01) ==
LOC: LAB SHORT 11:32 → LAB 11:32
PROVIDERS: Physician Assistant
DX: R07.9 Chest pain, unspecified (principal)
CPT/HCPCS: 80053; 84484; 85025

== ENCOUNTER → 2023-07-09 | Outpatient (CLI) | payer OTHER | LOC: LAB 11:39 → LAB SHORT 11:39 | DX: R30.0 Dysuria (principal) | CPT/HCPCS: 87077; 87086; 87186 ==

== ENCOUNTER 2023-08-10 14:58 | Emergency (ER) | payer OTHER ==
[~2023-08-10] VITALS: Ht 152.4 cm; Wt 54.4 kg
[2023-08-10 15:05] VITALS: BP 126/56
[2023-08-10 16:01] LABS: Influenza B, PCR NEGATIVE (NEGATIVE); Resp Syncytial Virus, PCR NEGATIVE (NEGATIVE); SARS-Cov-2 (COVID-19) PCR, MMC NEGATIVE (NEGATIVE)
[2023-08-10 16:28] LABS: Influenza A, PCR POSITIVE (NEGATIVE)
== END 2023-08-10 19:08 | disposition home or self-care (01) ==
LOC: ER 14:58
PROVIDERS: Student in an Organized Health Care Education/Training Program
DX: J10.1 Influenza due to other identified influenza virus with other respiratory manifestations (principal); Z79.899 Other long term (current) drug therapy
CPT/HCPCS: 0241U; 71046; 99283-25

== ENCOUNTER 2023-08-12 18:56 | Emergency (ER) | payer OTHER ==
[~2023-08-12] VITALS: Ht 152.4 cm; Wt 59.0 kg
[2023-08-12 19:51] VITALS: BP 110/54
[2023-08-12 21:19] LABS: Influenza B, PCR NEGATIVE (NEGATIVE); Resp Syncytial Virus, PCR NEGATIVE (NEGATIVE); SARS-Cov-2 (COVID-19) PCR, MMC NEGATIVE (NEGATIVE)
[2023-08-12 21:21] LABS: Influenza A, PCR POSITIVE (NEGATIVE)
[2023-08-12] MEDS ORDERED: Albuterol 2.5 MG/3 ML VIAL INH SCH (23:50)
[2023-08-13] MEDS ORDERED: ALBU2.5V5 INH (00:48)
[2023-08-13] MEDS ORDERED: ONDA4 PO (00:48)
[2023-08-16] MEDS ORDERED: LOSA50 PO (22:48)
== END 2023-08-13 01:45 | disposition home or self-care (01) ==
LOC: ER 18:56
PROVIDERS: Student in an Organized Health Care Education/Training Program
DX: J10.1 Influenza due to other identified influenza virus with other respiratory manifestations (principal); I10 Essential (primary) hypertension; E78.00 Pure hypercholesterolemia, unspecified; Z87.891 Personal history of nicotine dependence; Z79.899 Other long term (current) drug therapy
CPT/HCPCS: 0241U; 71046; 94640; 94664; 99284-25

== ENCOUNTER 2023-10-14 14:54 | Emergency (ER) | payer OTHER ==
[~2023-10-14] VITALS: Ht 152.4 cm; Wt 53.1 kg
[~2023-10-14 14:54] MED LIST changes: +ALBU2.5V5 INH; +AMLO10 PO; +LOSA50 PO
[2023-10-14 14:56] VITALS: BP 141/65
[2023-10-14] MEDS ORDERED: Acetaminophen 325 MG TABLET PO ONE (15:20)
[2023-10-14] MEDS ORDERED: Robaxin750 MG PO (16:23)
== END 2023-10-14 16:34 | disposition home or self-care (01) ==
LOC: ER 14:54
DX: M54.50 Low back pain, unspecified (principal); I10 Essential (primary) hypertension; M51.36 Other intervertebral disc degeneration, lumbar region; M51.37 Other intervertebral disc degeneration, lumbosacral region; M47.816 Spondylosis without myelopathy or radiculopathy, lumbar region; Z79.899 Other long term (current) drug therapy; Z87.891 Personal history of nicotine dependence
CPT/HCPCS: 72100; 99283-25; A9270

== ENCOUNTER → 2024-01-07 | Outpatient (CLI) | payer MEDICARE, OTHER ==
[~2024-01-07] MED LIST changes: +Robaxin750 MG PO
[2024-01-07 19:37] LABS: Enterotoxigenic E. coli-ETEC Detected (NOT DETECT); Norovirus GI/GII Detected (NOT DETECT)
[2024-01-07 19:38] LABS: Adenovirus F 40/41 Not Detected (NOT DETECT); Astrovirus Not Detected (NOT DETECT); Campylobacter Sp Not Detected (NOT DETECT); Cryptosporidium Not Detected (NOT DETECT); Cyclospora Cayetanensis Not Detected (NOT DETECT); E. Coli O157 Not Detected (NOT DETECT); Entamoeba Histolytica Not Detected (NOT DETECT); Enteroaggregative E. coli-EAEC Not Detected (NOT DETECT); Enteropathogenic E. coli-EPEC Not Detected (NOT DETECT); Giardia Lamblia Not Detected (NOT DETECT); Plesiomonas Shigelloides Not Detected (NOT DETECT); Rotavirus A Not Detected (NOT DETECT); Salmonella Sp Not Detected (NOT DETECT); Sapovirus Not Detected (NOT DETECT); Shiga Toxin-prod E. coli-STEC Not Detected (NOT DETECT); Shigella/Enteroin E. coli-EIEC Not Detected (NOT DETECT); Vibrio Cholerae Not Detected (NOT DETECT); Vibrio Sp Not Detected (NOT DETECT); Yersinia Enterocolitica Not Detected (NOT DETECT)
== END | disposition home or self-care (01) ==
LOC: LAB SHORT 15:10 → LAB 15:10
PROVIDERS: Family Medicine
DX: A09 Infectious gastroenteritis and colitis, unspecified (principal)
CPT/HCPCS: 87507

== ENCOUNTER → 2024-01-12 | Outpatient (CLI) | payer MEDICARE, OTHER | END | disposition home or self-care (01) | LOC: LAB SHORT 17:08 → LAB 17:08 | DX: R82.90 Unspecified abnormal findings in urine (principal) | CPT/HCPCS: 87077; 87086; 87186 ==

== ENCOUNTER 2024-02-15 19:53 | Emergency (ER) | payer OTHER, MEDICARE ==
[~2024-02-15] VITALS: Ht 152.4 cm; Wt 52.2 kg
[2024-02-15 20:19] LABS: BASOPHILS ABSOLUTE AUTO 0.05 K/mm3 (0.00-0.23); BASOPHILS PERCENT AUTO 1 % (0-2); EOSINOPHILS ABSOLUTE AUTO 0.18 K/mm3 (0.00-0.68); EOSINOPHILS PERCENT AUTO 4 % (0-6); Hematocrit 32.7 % (33.0-51.0); Hemoglobin 11.1 g/dL (11.5-16.0); IMMATURE GRAN ABSOLUTE AUTO 0.01 K/mm3 (0.00-0.10); IMMATURE GRAN PERCENT AUTO 0 % (0-1); LYMPHOCYTES ABSOLUTE AUTO 1.72 K/mm3 (0.84-5.20); LYMPHOCYTES PERCENT AUTO 41 % (21-46); MONOCYTES ABSOLUTE AUTO 0.33 K/mm3 (0.16-1.47); MONOCYTES PERCENT AUTO 8 % (4-13); Mean Corpuscular HGB 29.6 pg (26.0-34.0); Mean Corpuscular HGB Conc 33.9 g/dL (31.5-36.5); Mean Corpuscular Volume 87 fL (80-100); Mean Platelet Volume 9.4 fL (9.1-12.4); NEUTROPHILS ABSOLUTE AUTO 1.86 K/mm3 (1.96-9.15); NEUTROPHILS PERCENT AUTO 45 % (41-73); Platelet Count 227 K/mm3 (150-400); RDW Coefficient Variation 14.5 % (11.7-14.2); RDW Standard Deviation 46.5 fL (35.1-46.3); Red Blood Cell Count 3.75 M/mm3 (3.80-5.20); White Blood Cell Count 4.15 K/mm3 (4.00-11.30)
[2024-02-15 20:42] LABS: Alanine Aminotransfer (ALT/SGP 47 U/L (12-78); Albumin, Blood 3.2 g/dL (3.4-5.0); Albumin/Globulin Ratio 0.6 (0.8-1.8); Alk Phos 209 U/L (50-136); Anion Gap 13 mmol/L (3-11); Aspartate Aminotrans (AST/SGOT 52 U/L (12-37); Bilirubin, Total 0.8 mg/dL (0.1-1.0); Blood Urea Nitrogen 19 mg/dL (8-24); CO2, Blood 21 mmol/L (21-32); Calcium, Blood 9.1 mg/dL (8.5-10.1); Chloride, Blood 100 mmol/L (98-108); Creatinine, Blood 0.86 mg/dL (0.40-1.00); Ethanol (Alcohol), Blood, Med <3 mg/dL; Globulin, Blood 5.2 g/dL (2.2-4.0); Glomerular Filtration Rate 69 (60-); Glucose, Blood 92 mg/dL (70-99); Potassium, Blood 4.3 mmol/L (3.5-5.5); Sodium, Blood 130 mmol/L (136-145); Total Protein, Blood 8.4 g/dL (6.4-8.2)
[2024-02-15 20:56] LABS: Prothrombin Time Results 10.7 Sec (9.7-11.5)
[2024-02-15 21:30] LABS: Source, Urine Clean Catch
[2024-02-15 21:42] LABS: Bilirubin, Urine Neg (Neg); Blood, Urine Neg (Neg); Glucose Qualitative, Urine Neg (Neg); Ketones, Urine Neg (Neg); Leukocyte Esterase, Urine Neg (Neg); Nitrite, Urine Neg (Neg); Protein, Urine Neg (Neg); Urobilinogen, Urine 1+ (Normal); pH, Urine 6.5 (5.0-8.0)
[2024-02-15 21:43] LABS: Appearance, Urine Clear (Clear); Color, Urine Yellow (P-Yellow)
[2024-02-15 21:54] LABS: U Amphetamine Screen Not Detected; U Barbituate Screen Not Detected; U Benzodiazapine Screen Not Detected; U Buprenorphine Screen Not Detected; U Cannabinoids Screen Not Detected; U Cocaine Screen Not Detected; U Methadone Screen Not Detected; U Methamphetamine Screen Not Detected; U Opiates Screen Not Detected; U Oxycodone Screen Not Detected; U Phencyclidine Screen Not Detected
[2024-02-15] MEDS ORDERED: ACET500 PO (22:40)
[2024-02-15] MEDS ORDERED: Percocet 5-3251 EACH PO (22:40)
[2024-02-15 23:39] VITALS: BP 160/71
[2024-02-15] MEDS ORDERED: [UNRECOGNIZED DRUG - SUPPLY] XX (23:49)
== END 2024-02-16 00:25 | disposition home or self-care (01) ==
LOC: ER 19:53
PROVIDERS: Emergency Medicine
DX: S22.060A Wedge compression fracture of T7-T8 vertebra, initial encounter for closed fracture (principal); M50.322 Other cervical disc degeneration at C5-C6 level; M50.323 Other cervical disc degeneration at C6-C7 level; M48.02 Spinal stenosis, cervical region; V49.9XXA Car occupant (driver) (passenger) injured in unspecified traffic accident, initial encounter; Z79.899 Other long term (current) drug therapy; I10 Essential (primary) hypertension; E78.00 Pure hypercholesterolemia, unspecified; Z87.891 Personal history of nicotine dependence
CPT/HCPCS: 70450; 71260; 72125; 74177; 80053; 80320; 81003; 83690; 85025; 85610; 85730; 99284-25; Q9967

== ENCOUNTER 2024-02-18 10:28 | Emergency (ER) | payer OTHER, MEDICARE ==
[~2024-02-18] VITALS: Ht 152.4 cm; Wt 54.4 kg
[~2024-02-18 10:28] MED LIST changes: +ACET500 PO; +Percocet 5-3251 EACH PO; +[UNRECOGNIZED DRUG - SUPPLY] XX
[2024-02-18 11:12] VITALS: BP 163/64
[2024-02-18] MEDS ORDERED: HYDROcodone 5-APAP 325 TAB PO ONE (11:15)
[2024-02-18] MEDS ORDERED: Norco 5-325 Ta1 EACH PO (11:16)
== END 2024-02-18 12:28 | disposition home or self-care (01) ==
LOC: ER 10:28
DX: S22.060A Wedge compression fracture of T7-T8 vertebra, initial encounter for closed fracture (principal); V89.2XXA Person injured in unspecified motor-vehicle accident, traffic, initial encounter; I10 Essential (primary) hypertension; Z87.891 Personal history of nicotine dependence; Z90.49 Acquired absence of other specified parts of digestive tract; Z79.899 Other long term (current) drug therapy
CPT/HCPCS: 99283; A9270

== ENCOUNTER → 2024-03-22 | Outpatient (CLI) | payer MEDICARE, OTHER ==
[2024-03-22 18:04] LABS: Osmolality, Urine 308 mos/kg (15-1400)
[2024-03-22 21:23] LABS: Sodium, Urine, Random 42 mmol/L (20-110)
== END | disposition home or self-care (01) ==
LOC: LAB SHORT 15:11 → LAB 15:11 → LAB FUT 03-19 12:25
PROVIDERS: Student in an Organized Health Care Education/Training Program
DX: E87.1 Hypo-osmolality and hyponatremia (principal)
CPT/HCPCS: 83935; 84300

== ENCOUNTER → 2024-07-23 | Outpatient (CLI) | payer MEDICARE, OTHER ==
[2024-07-23 15:28] LABS: Source, Urine Voided
[2024-07-23 16:14] LABS: Appearance, Urine Hazy (Clear); Bilirubin, Urine Neg (Neg); Blood, Urine 2+ (Neg); Color, Urine Amber (P-Yellow); Glucose Qualitative, Urine Neg (Neg); Ketones, Urine Neg (Neg); Leukocyte Esterase, Urine 3+ (Neg); Nitrite, Urine Pos (Neg); Protein, Urine 1+ (Neg); Urobilinogen, Urine NORM (Normal)
[2024-07-23 16:25] LABS: Bacteria Many /hpf; Squamous Epithelial Cells Few /hpf (Few)
== END | disposition home or self-care (01) ==
LOC: LAB 15:24 → LAB SHORT 15:24
PROVIDERS: Student in an Organized Health Care Education/Training Program
DX: R30.0 Dysuria (principal)
CPT/HCPCS: 81001; 87077; 87086; 87186

== ENCOUNTER → 2024-08-16 | Outpatient (CLI) | payer MEDICARE, OTHER ==
[2024-08-16 17:13] LABS: Source, Urine Clean Catch
[2024-08-16 18:46] LABS: Appearance, Urine Cloudy (Clear); Bilirubin, Urine Neg (Neg); Blood, Urine 2+ (Neg); Color, Urine Yellow (P-Yellow); Glucose Qualitative, Urine Neg (Neg); Ketones, Urine Neg (Neg); Leukocyte Esterase, Urine 3+ (Neg); Nitrite, Urine Pos (Neg); Protein, Urine 2+ (Neg); Urobilinogen, Urine NORM (Normal); pH, Urine 6.5 (5.0-8.0)
[2024-08-16 19:16] LABS: Bacteria Many /hpf; Squamous Epithelial Cells Few /hpf (Few); White Blood Cells, Urine 25-50 /hpf (0-5)
== END ==
LOC: LAB SHORT 17:09 → LAB 17:09
PROVIDERS: Student in an Organized Health Care Education/Training Program
DX: R30.0 Dysuria (principal)
CPT/HCPCS: 81001; 87077; 87086; 87186

== ENCOUNTER 2024-10-27 20:49 | Inpatient (IN) | payer MEDICARE, OTHER ==
[~2024-10-27] VITALS: Ht 162.6 cm; Wt 52.3 kg
[2024-10-27] MEDS ORDERED: HYDROmorphone HCl/Pf 1MG SYR IV ONE (21:05)
[2024-10-27] MEDS ORDERED: Ondansetron HCl 2 MG / ML 2ML Vial IV ONE (21:05)
[2024-10-27 21:08] LABS: BASOPHILS ABSOLUTE AUTO 0.05 K/mm3 (0.00-0.23); BASOPHILS PERCENT AUTO 1 % (0-2); EOSINOPHILS ABSOLUTE AUTO 0.15 K/mm3 (0.00-0.68); EOSINOPHILS PERCENT AUTO 2 % (0-6); Hematocrit 32.7 % (33.0-51.0); Hemoglobin 11.5 g/dL (11.5-16.0); IMMATURE GRAN ABSOLUTE AUTO 0.02 K/mm3 (0.00-0.10); IMMATURE GRAN PERCENT AUTO 0 % (0-1); LYMPHOCYTES ABSOLUTE AUTO 2.67 K/mm3 (0.84-5.20); LYMPHOCYTES PERCENT AUTO 43 % (21-46); MONOCYTES ABSOLUTE AUTO 0.45 K/mm3 (0.16-1.47); MONOCYTES PERCENT AUTO 7 % (4-13); Mean Corpuscular HGB 30.3 pg (26.0-34.0); Mean Corpuscular HGB Conc 35.2 g/dL (31.5-36.5); Mean Corpuscular Volume 86 fL (80-100); Mean Platelet Volume 9.9 fL (9.1-12.4); NEUTROPHILS PERCENT AUTO 47 % (41-73); Platelet Count 242 K/mm3 (150-400); RDW Coefficient Variation 13.9 % (11.7-14.2); RDW Standard Deviation 43.4 fL (35.1-46.3); Red Blood Cell Count 3.79 M/mm3 (3.80-5.20); White Blood Cell Count 6.24 K/mm3 (4.00-11.30)
[2024-10-27 21:31] LABS: Albumin, Blood 3.3 g/dL (3.4-5.0); Albumin/Globulin Ratio 0.7 (0.8-1.8); Bilirubin, Total 0.7 mg/dL (0.1-1.0); Bun/Creatinine Ratio 27.8 (12.0-20.0); Calcium, Blood 9.6 mg/dL (8.5-10.1); Creatinine, Blood 0.68 mg/dL (0.40-1.00); Globulin, Blood 4.9 g/dL (2.2-4.0); Potassium, Blood 4.1 mmol/L (3.5-5.5); Total Protein, Blood 8.2 g/dL (6.4-8.2)
[2024-10-27] MEDS ORDERED: Acetaminophen 500 MG Tab PO ONE (21:55)
[2024-10-27] MEDS ORDERED: Ketorolac Tromethamine 15mg Vial IV ONE (21:55)
[2024-10-27] MEDS ORDERED: HYDROmorphone HCl/Pf 1MG SYR IV PRN (23:20)
[2024-10-27] MEDS ORDERED: Ondansetron HCl 2 MG / ML 2ML Vial IV PRN (23:20)
[2024-10-27] MEDS ORDERED: Acetaminophen 325 MG TABLET PO PRN (23:20)
[2024-10-27] MEDS ORDERED: Naloxone HCl 0.4MG / ML 1ML Vial IV PRN (23:20)
[2024-10-27] MEDS ORDERED: NS 1,000 ML IV SCH (23:39)
[2024-10-27] MEDS ORDERED: Ketorolac Tromethamine 15mg Vial IV PRN (23:45)
[2024-10-27] MEDS ORDERED: HYDROcodone 5-APAP 325 TAB PO PRN (23:50)
[2024-10-28] VITALS (22 sets, daily range): BP systolic 84–212; BP diastolic 40–95
--- NOTE | 2024-10-28 00:45 | NUR ---
ARRIVAL TO SURGICAL UNIT ROOM 212 FROM ER. PT A/O X4. ORIENTED TO ROOM AND CALL LIGHT. LEFT LOWER EXTREMITY EXTERNALLY ROTATED, PULSES INTACT, DENIES N/T. DAUGHTER BLAISE AT BEDSIDE REPORTS BEING POA FOR PT. DNR BRACELET VERIFIED AND PLACED. BED ALARM SET FOR SAFETY.
[2024-10-28] MEDS ORDERED: HYDSUL200 PO (00:52)
[2024-10-28] MEDS ORDERED: ALEN70 PO (00:54)
[2024-10-28] MEDS ORDERED: Vitamin D1000 UNI1 PO (00:55)
[2024-10-28] MEDS ORDERED: [UNRECOGNIZED DRUG - CODE] PO (00:56)
[2024-10-28] MEDS ORDERED: CRANBERRY215 MG PO (00:57)
[2024-10-28] MEDS ORDERED: SENN187 PO (00:58)
[2024-10-28 04:12] LABS: BASOPHILS ABSOLUTE AUTO 0.03 K/mm3 (0.00-0.23); BASOPHILS PERCENT AUTO 1 % (0-2); EOSINOPHILS ABSOLUTE AUTO 0.01 K/mm3 (0.00-0.68); EOSINOPHILS PERCENT AUTO 0 % (0-6); Hematocrit 32.5 % (33.0-51.0); Hemoglobin 11.3 g/dL (11.5-16.0); IMMATURE GRAN ABSOLUTE AUTO 0.02 K/mm3 (0.00-0.10); IMMATURE GRAN PERCENT AUTO 0 % (0-1); LYMPHOCYTES ABSOLUTE AUTO 0.63 K/mm3 (0.84-5.20); LYMPHOCYTES PERCENT AUTO 11 % (21-46); MONOCYTES PERCENT AUTO 7 % (4-13); Mean Corpuscular HGB 30.3 pg (26.0-34.0); Mean Corpuscular HGB Conc 34.8 g/dL (31.5-36.5); Mean Corpuscular Volume 87 fL (80-100); NEUTROPHILS ABSOLUTE AUTO 4.93 K/mm3 (1.96-9.15); NEUTROPHILS PERCENT AUTO 82 % (41-73); Platelet Count 212 K/mm3 (150-400); RDW Coefficient Variation 13.8 % (11.7-14.2); RDW Standard Deviation 43.6 fL (35.1-46.3); Red Blood Cell Count 3.73 M/mm3 (3.80-5.20); White Blood Cell Count 6.02 K/mm3 (4.00-11.30)
[2024-10-28 05:27] LABS: Albumin/Globulin Ratio 0.7 (0.8-1.8); Bilirubin, Total 0.7 mg/dL (0.1-1.0); Bun/Creatinine Ratio 26.3 (12.0-20.0); Calcium, Blood 9.6 mg/dL (8.5-10.1); Creatinine, Blood 0.72 mg/dL (0.40-1.00); Globulin, Blood 4.6 g/dL (2.2-4.0); Magnesium, Blood 1.8 mg/dL (1.6-2.4); Total Protein, Blood 7.6 g/dL (6.4-8.2)
--- NOTE | 2024-10-28 07:29 | NUR ---
SHIFT SUMMARY NOC. PT A/O X4, FORGETFUL AT TIMES, FAMILY REPORTS DEMENTIA AT BASELINE. PT ADMIT FOR LEFT HIP FX POST GLF. PT MEDICATED FOR PAIN WITH ORAL NORCO. PT NPO ASIDE FROM ORAL PAIN MEDICATION. PT INCONTINENT OF URINE AND PUREWICK AND ATTENDS IN PLACE. PT MAKES NEEDS KNOWN, CALL LIGHT IN REACH.
[2024-10-28] MEDS ORDERED: Tranexamic Acid 100 ML IV SCH ×2 (08:10→12:45)
[2024-10-28] MEDS ORDERED: CeFAZolin Sodium 2,000 MG in NS 100 ML IV SCH ×2 (08:10→20:00)
[2024-10-28] MEDS ORDERED: Docusate Sodium 100 MG Cap PO SCH (09:00)
[2024-10-28] MEDS ORDERED: Lactated Ringer's 1,000 ML IV SCH (09:00)
[2024-10-28] MEDS ORDERED: Methocarbamol 500 MG Tab PO SCH (09:00)
[2024-10-28] MEDS ORDERED: Bupivacaine 0.5% HCl 5 MG/ML 30MLVIAL ONE ×2 (11:19→11:31)
[2024-10-28] MEDS ORDERED: Etomidate 2MG / ML 10ML Vial ONE (11:40)
[2024-10-28] MEDS ORDERED: FentaNYL Citrate 50 MCG/ML 2 ML Injection ONE ×2 (11:50→12:05)
[2024-10-28] MEDS ORDERED: Sugammadex Sodium 200 MG/2ML SDV (100 MG/ML) ONE (12:14)
[2024-10-28] MEDS ORDERED: Naloxone HCl 0.4MG / ML 1ML Vial ONE (12:19)
[2024-10-28] MEDS ORDERED: Ondansetron HCl 2 MG / ML 2ML Vial IV PRN (12:30)
[2024-10-28] MEDS ORDERED: FentaNYL Citrate 50 MCG/ML 2 ML Injection IV PRN ×2 (12:30→12:35)
[2024-10-28] MEDS ORDERED: Morphine Sulfate 4 MG/1 ML Injection IV PRN (12:35)
[2024-10-28] MEDS ORDERED: HYDROmorphone HCl/Pf 1MG SYR IV PRN ×2 (12:35→16:50)
[2024-10-28] MEDS ORDERED: Metoclopramide HCl 5MG / ML 2ML Vial IV PRN (12:35)
[2024-10-28] MEDS ORDERED: Labetalol HCL 5 MG/ML 4ML Injection (Single Dose) ONE (12:44)
[2024-10-28] MEDS ORDERED: HydrALAZINE HCl 20 MG / ML 1ML Vial IV PRN (13:15)
[2024-10-28] MEDS ORDERED: NS 500 ML IV ONE (15:45)
--- NOTE | 2024-10-28 16:45 | NUR ---
SHIFT SUMMARY PT S/P L HIP NAILING. PT RETURNED FROM SURGERY DRESSING TO LEFT HIP WITH GAUZE CDI. PT VERY TIRED ON ARRIVAL BUT DENIES PAIN WHEN ASKED. REMAINS RESTING IN BED. BLOOD PRESSURE IMPROVED SINCE ARRIVAL. 500ML BOLUS INFUSING. BED ALARM ON. REMAINS ON ROOM AIR. PPX4. CAP REFILL <3. MOVES EXTREMETIES WELL.
--- NOTE | 2024-10-28 18:36 | NUR ---
"Spiritual Care Visit | Pt. Request Pt. is awake but displayed evidence of grogginess. Pt. did welcome this program engineer at bedside. Nurse is present administering some pain meds. A short life reeview was facilitated. Prayed for Pt. Pt. was actively engaged in the prayer and verbalized graititude for the spiritual care visit."
--- NOTE | 2024-10-29 04:52 | NUR ---
SHIFT SUMMARY DAMARIS WAS ALERT AND ORIENTED X 3-4 ON ASSESSMENT. PT SLOW TO RESPOND AND FORGETFUL. PT DRESSINGS TO L HIP ARE C/D/I EXCEPT FOR DISTAL MOST DRESSING WHICH HAD SOME S/S SATURATION. CHANGED THIS SHIFT. PT PAIN WELL MANAGED, MOSTLY TO BACK. DISTAL PULSES PALPABLE. WIGGLES TOES WHEN ASKED. PURWIC IN PLACE. NO ACUTE EVENTS TONIGHT.
[2024-10-29 05:24] LABS: BASOPHILS ABSOLUTE AUTO 0.02 K/mm3 (0.00-0.23); BASOPHILS PERCENT AUTO 0 % (0-2); EOSINOPHILS ABSOLUTE AUTO 0.01 K/mm3 (0.00-0.68); EOSINOPHILS PERCENT AUTO 0 % (0-6); Hematocrit 28.1 % (33.0-51.0); Hemoglobin 9.6 g/dL (11.5-16.0); IMMATURE GRAN ABSOLUTE AUTO 0.02 K/mm3 (0.00-0.10); IMMATURE GRAN PERCENT AUTO 0 % (0-1); LYMPHOCYTES ABSOLUTE AUTO 0.65 K/mm3 (0.84-5.20); LYMPHOCYTES PERCENT AUTO 13 % (21-46); MONOCYTES ABSOLUTE AUTO 0.31 K/mm3 (0.16-1.47); MONOCYTES PERCENT AUTO 6 % (4-13); Mean Corpuscular HGB 30.4 pg (26.0-34.0); Mean Corpuscular HGB Conc 34.2 g/dL (31.5-36.5); Mean Corpuscular Volume 89 fL (80-100); Mean Platelet Volume 10.1 fL (9.1-12.4); NEUTROPHILS ABSOLUTE AUTO 4.08 K/mm3 (1.96-9.15); NEUTROPHILS PERCENT AUTO 80 % (41-73); Platelet Count 196 K/mm3 (150-400); RDW Coefficient Variation 14.1 % (11.7-14.2); Red Blood Cell Count 3.16 M/mm3 (3.80-5.20); White Blood Cell Count 5.09 K/mm3 (4.00-11.30)
[2024-10-29 05:57] LABS: Bun/Creatinine Ratio 27.8 (12.0-20.0); Calcium, Blood 8.6 mg/dL (8.5-10.1); Creatinine, Blood 0.76 mg/dL (0.40-1.00); Potassium, Blood 4.6 mmol/L (3.5-5.5)
[2024-10-29 07:14] VITALS: BP 174/68
[2024-10-29 14:35] VITALS: BP 154/56
--- NOTE | 2024-10-29 16:41 | NUR ---
SHIFT SUMMARY PT IS A/OX3, CONFUSION AND FORGETFUL. DRESSING TO L HIP REMAIN C/D/I. PT REPORTS MINIMAL/NO PAIN THROUGHOUT THIS SHIFT, GIVEN NORCO ONCE THIS SHIFT PER MAR PRIOR TO WORKING WITH PT/OT. UP WITH 2 PERSON ASSIST AND FWW TO CHAIR/BSC, WEIGHT TOLERATED TO THE LLE. PT IS INCONT, ATTENDS IN PLACE AND CHANGED NEEDED. ON RA, SATS >92%. FAMILY AT BEDSIDE THROUGHOUT THIS SHIFT. POSSIBLE DC TOMORROW.
[2024-10-29 20:12] VITALS: BP 168/62
[2024-10-29] MEDS ORDERED: Sodium Chloride 1 GM TAB PO SCH (21:00)
[2024-10-30 00:11] VITALS: BP 164/64
--- NOTE | 2024-10-30 04:26 | NUR ---
SHIFT SUMMARY DAMARIS WAS DROWSY DURING ASSESSMENT. PT ORIENTED TO SELF, PLACE, AND SITUATION. PT DENYING PAIN TO HIP. DRESSINGS TO L LEG C/D/I. SENSATION INTACT TO FEET, ABLE TO WIGGLE TOES, PULSES PALPABLE. ATTENDS IN PLACE FOR INCONTENINCE, CHANGED PRN. NO ACUTE EVENTS TONIGHT. NO NOTED CHANGES TO PT CONDITION.
[2024-10-30 05:03] LABS: BASOPHILS ABSOLUTE AUTO 0.04 K/mm3 (0.00-0.23); BASOPHILS PERCENT AUTO 1 % (0-2); EOSINOPHILS ABSOLUTE AUTO 0.04 K/mm3 (0.00-0.68); EOSINOPHILS PERCENT AUTO 1 % (0-6); Hematocrit 27.2 % (33.0-51.0); Hemoglobin 9.2 g/dL (11.5-16.0); IMMATURE GRAN ABSOLUTE AUTO 0.01 K/mm3 (0.00-0.10); IMMATURE GRAN PERCENT AUTO 0 % (0-1); LYMPHOCYTES ABSOLUTE AUTO 0.87 K/mm3 (0.84-5.20); LYMPHOCYTES PERCENT AUTO 19 % (21-46); MONOCYTES PERCENT AUTO 11 % (4-13); Mean Corpuscular HGB 29.6 pg (26.0-34.0); Mean Corpuscular HGB Conc 33.8 g/dL (31.5-36.5); Mean Corpuscular Volume 88 fL (80-100); NEUTROPHILS ABSOLUTE AUTO 3.13 K/mm3 (1.96-9.15); NEUTROPHILS PERCENT AUTO 68 % (41-73); Platelet Count 202 K/mm3 (150-400); RDW Standard Deviation 44.5 fL (35.1-46.3); Red Blood Cell Count 3.11 M/mm3 (3.80-5.20); White Blood Cell Count 4.59 K/mm3 (4.00-11.30)
[2024-10-30 05:10] VITALS: BP 149/56
[2024-10-30 05:52] LABS: Bun/Creatinine Ratio 26.5 (12.0-20.0); Calcium, Blood 8.7 mg/dL (8.5-10.1); Creatinine, Blood 0.6 mg/dL (0.40-1.00); Potassium, Blood 4.4 mmol/L (3.5-5.5)
[2024-10-30 07:01] VITALS: BP 163/63
[2024-10-30] MEDS ORDERED: Enoxaparin 40 MG/0.4 ML SYR SC SCH (09:00)
[2024-10-30] MEDS ORDERED: AmLODIPine Besylate 5 MG Tab PO SCH (09:10)
[2024-10-30] MEDS ORDERED: Losartan Potassium 50 MG Tab PO SCH (09:10)
[2024-10-30] MEDS ORDERED: Polyethylene Glycol 3350 17 gm PO SCH (09:10)
[2024-10-30 12:18] VITALS: BP 134/54
--- NOTE | 2024-10-30 12:42 | NUR ---
dc'd to [facility] PT LEFT UNIT IN WC. TRANSPORTER HAS DC PACKET. FAMILY TOOK POSSESSIONS. CALLED REPORT TO MARYBETH AT [facility].
--- NOTE | 2024-10-30 13:01 | NUR ---
faxed revised dc med rec to [facility].
== END 2024-10-30 12:42 | disposition home or self-care (01) | DRG 481 ==
LOC: ER 20:49 → ERHOLD 20:50 → SURS 20:50
PROVIDERS: Emergency Medicine; Family Medicine; Orthopaedic Surgery Sports Medicine; ADMIT Student in an Organized Health Care Education/Training Program
PROC: 0QH734Z Insertion of Internal Fixation Device into Left Upper Femur, Percutaneous Approach (ICD-10-PCS; principal; 2024-10-28 10:00)
DX: S72.142A Displaced intertrochanteric fracture of left femur, initial encounter for closed fracture (principal); E87.1 Hypo-osmolality and hyponatremia; W18.30XA Fall on same level, unspecified, initial encounter; Z66 Do not resuscitate; D64.9 Anemia, unspecified; M32.9 Systemic lupus erythematosus, unspecified; I10 Essential (primary) hypertension; E78.5 Hyperlipidemia, unspecified; Z90.49 Acquired absence of other specified parts of digestive tract; Z98.51 Tubal ligation status; Z98.890 Other specified postprocedural states; Z79.899 Other long term (current) drug therapy; Z87.440 Personal history of urinary (tract) infections; Z86.19 Personal history of other infectious and parasitic diseases; Z87.891 Personal history of nicotine dependence
CPT/HCPCS: 36415; 73502; 80048; 80053; 83735; 83930; 85025; 93005; 93010; 94762; 96374; 96375; 97110-CQ; 97161; 97165; 97530; 99285-25; A9270; C1713; C1769; G0378; J0360; J0690; J1171; J1650; J1885; J2310; J2405; J3010; J7030; J7120

== ENCOUNTER → 2025-01-03 | Outpatient (CLI) | payer MEDICARE, OTHER ==
[~2025-01-03] MED LIST changes: +ALEN70 PO; +CRANBERRY215 MG PO; +HYDSUL200 PO; +SENN187 PO; +Vitamin D1000 UNI1 PO; +[UNRECOGNIZED DRUG - CODE] PO
[2025-01-03 19:26] LABS: Osmolality, Urine 140 mos/kg (15-1400)
[2025-01-03 20:50] LABS: Sodium, Urine, Random 31 mmol/L (20-110)
== END ==
LOC: LAB SHORT 01:04 → LAB 01:04 → LAB FUT 12-31 15:55
PROVIDERS: Student in an Organized Health Care Education/Training Program
DX: E87.1 Hypo-osmolality and hyponatremia (principal)
CPT/HCPCS: 83935; 84300

== ENCOUNTER → 2025-02-09 | Outpatient (CLI) | payer MEDICARE, OTHER ==
[2025-02-09 19:54] LABS: Sodium, Urine, Random 29 mmol/L (20-110)
[2025-02-09 20:15] LABS: Osmolality, Urine 131 mos/kg (15-1400)
== END ==
LOC: LAB 17:29 → LAB SHORT 17:29 → LAB FUT 01-04 09:15
PROVIDERS: Student in an Organized Health Care Education/Training Program
DX: E87.1 Hypo-osmolality and hyponatremia (principal)
CPT/HCPCS: 83935; 84300

== ENCOUNTER 2025-02-18 16:37 | Emergency (ER) | payer MEDICARE, OTHER ==
[~2025-02-18] VITALS: Ht 152.4 cm; Wt 49.4 kg
[2025-02-18 17:58] LABS: BASOPHILS ABSOLUTE AUTO 0.06 K/mm3 (0.00-0.23); BASOPHILS PERCENT AUTO 1 % (0-2); EOSINOPHILS ABSOLUTE AUTO 0.26 K/mm3 (0.00-0.68); EOSINOPHILS PERCENT AUTO 5 % (0-6); Hematocrit 35.7 % (33.0-51.0); Hemoglobin 12.4 g/dL (11.5-16.0); IMMATURE GRAN ABSOLUTE AUTO 0.01 K/mm3 (0.00-0.10); IMMATURE GRAN PERCENT AUTO 0 % (0-1); LYMPHOCYTES ABSOLUTE AUTO 1.44 K/mm3 (0.84-5.20); LYMPHOCYTES PERCENT AUTO 30 % (21-46); MONOCYTES ABSOLUTE AUTO 0.32 K/mm3 (0.16-1.47); MONOCYTES PERCENT AUTO 7 % (4-13); Mean Corpuscular HGB Conc 34.7 g/dL (31.5-36.5); Mean Corpuscular Volume 87 fL (80-100); NEUTROPHILS ABSOLUTE AUTO 2.70 K/mm3 (1.96-9.15); NEUTROPHILS PERCENT AUTO 56 % (41-73); NRBC ABSOLUTE 0.00 K/mm3 (0.00-0.02); NRBC Auto 0.0 /100 WBC (0.0-0.2); Platelet Count 199 K/mm3 (150-400); RDW Coefficient Variation 13.2 % (11.7-14.2); RDW Standard Deviation 41.3 fL (35.1-46.3)
[2025-02-18 18:16] LABS: Alanine Aminotransfer (ALT/SGP 28.0 U/L (12-78); Albumin, Blood 3.4 g/dL (3.4-5.0); Albumin/Globulin Ratio 0.7 (0.8-1.8); Anion Gap 8.0 mmol/L (3-11); Aspartate Aminotrans (AST/SGOT 34.0 U/L (12-37); Bilirubin, Total 0.9 mg/dL (0.1-1.0); Blood Urea Nitrogen 9.0 mg/dL (8-24); CO2, Blood 23.0 mmol/L (21-32); Calcium, Blood 9.4 mg/dL (8.5-10.1); Chloride, Blood 101.0 mmol/L (98-108); Creatinine, Blood 0.65 mg/dL (0.40-1.00); Globulin, Blood 5.0 g/dL (2.2-4.0); Glucose, Blood 80.0 mg/dL (70-99); Potassium, Blood 4.1 mmol/L (3.5-5.5); Sodium, Blood 128.0 mmol/L (136-145); Total Protein, Blood 8.4 g/dL (6.4-8.2)
[2025-02-18 22:30] VITALS: BP 184/89
[2025-02-18] MEDS ORDERED: Water 500ML With 1 PKT Castile Soap Enema PR ONE (22:30)
[2025-02-18] MEDS ORDERED: Fleet Enema132 ML PR (23:12)
[2025-02-18] MEDS ORDERED: Peg/Electrolytes 4,000 ML BTL PO ONE (23:15)
== END 2025-02-18 23:22 | disposition home or self-care (01) ==
LOC: ER 16:37
PROVIDERS: Student in an Organized Health Care Education/Training Program
DX: K59.00 Constipation, unspecified (principal); I10 Essential (primary) hypertension; E78.00 Pure hypercholesterolemia, unspecified; Z87.891 Personal history of nicotine dependence; Z79.899 Other long term (current) drug therapy
CPT/HCPCS: 36415; 80053; 85025; 99283; A6590; A9270

== ENCOUNTER 2025-03-03 14:38 | Emergency (ER) | payer MEDICARE, OTHER ==
[~2025-03-03] VITALS: Ht 152.4 cm; Wt 49.4 kg
[~2025-03-03 14:38] MED LIST changes: +Fleet Enema132 ML PR
[2025-03-03 15:25] VITALS: BP 209/89
[2025-03-03] MEDS ORDERED: HYDROcodone 5-APAP 325 TAB PO ONE (16:45)
== END 2025-03-03 18:00 | disposition home or self-care (01) ==
LOC: ER 14:38
DX: S72.142D Displaced intertrochanteric fracture of left femur, subsequent encounter for closed fracture with routine healing (principal); I10 Essential (primary) hypertension; Z79.899 Other long term (current) drug therapy; Z87.891 Personal history of nicotine dependence; Z59.89 Other problems related to housing and economic circumstances; W06.XXXD Fall from bed, subsequent encounter
CPT/HCPCS: 73502; 99283-25; A9270

== ENCOUNTER 2025-03-11 09:31 | Emergency (ER) | payer MEDICARE, OTHER ==
[~2025-03-11] VITALS: Ht 152.4 cm; Wt 49.4 kg
[2025-03-11 12:11] LABS: Source, Urine Clean Catch
[2025-03-11 12:14] LABS: Bilirubin, Urine Neg (Neg); Color, Urine Yellow (P-Yellow); Glucose Qualitative, Urine Neg (Neg); Ketones, Urine Neg (Neg); Leukocyte Esterase, Urine 2+ (Neg); Protein, Urine Neg (Neg); Specific Gravity, Urine 1.010 (1.003-1.022); Urobilinogen, Urine NORM (Normal)
[2025-03-11 12:29] LABS: Red Blood Cells, Urine 0-2 /hpf (0-2)
[2025-03-11] MEDS ORDERED: CEPH500 PO (12:37)
[2025-03-11 12:53] VITALS: BP 126/71
== END 2025-03-11 12:53 | disposition home or self-care (01) ==
LOC: ER 09:31
PROVIDERS: Emergency Medicine
DX: M43.9 Deforming dorsopathy, unspecified (principal); N39.0 Urinary tract infection, site not specified; M54.2 Cervicalgia; Z79.899 Other long term (current) drug therapy; Z79.2 Long term (current) use of antibiotics; W18.30XA Fall on same level, unspecified, initial encounter
CPT/HCPCS: 72040; 72070; 81001; 87077; 87086; 87186; 99284-25; A6590; A9270

== ENCOUNTER 2025-05-15 10:42 | Inpatient (IN) | payer MEDICARE, OTHER ==
[~2025-05-15] VITALS: Ht 160 cm; Wt 51.6 kg
[~2025-05-15 10:42] MED LIST changes: +CEPH500 PO
[2025-05-15] MEDS ORDERED: BENADRYL25 MG PO (10:57)
[2025-05-15] MEDS ORDERED: DULCOLAX400 MG/5 M PO (10:58)
[2025-05-15] MEDS ORDERED: NS 500 ML IV SCH (11:25)
[2025-05-15] MEDS ORDERED: Ondansetron HCl 2 MG / ML 2ML Vial IV ONE (11:35)
[2025-05-15 11:37] LABS: BASOPHILS ABSOLUTE AUTO 0.06 K/mm3 (0.00-0.23); BASOPHILS PERCENT AUTO 1 % (0-2); EOSINOPHILS ABSOLUTE AUTO 0.01 K/mm3 (0.00-0.68); EOSINOPHILS PERCENT AUTO 0 % (0-6); Hematocrit 32.8 % (33.0-51.0); Hemoglobin 11.3 g/dL (11.5-16.0); IMMATURE GRAN ABSOLUTE AUTO 0.02 K/mm3 (0.00-0.10); IMMATURE GRAN PERCENT AUTO 0 % (0-1); LYMPHOCYTES ABSOLUTE AUTO 0.78 K/mm3 (0.84-5.20); LYMPHOCYTES PERCENT AUTO 7 % (21-46); MONOCYTES ABSOLUTE AUTO 0.68 K/mm3 (0.16-1.47); MONOCYTES PERCENT AUTO 6 % (4-13); Mean Corpuscular HGB Conc 34.5 g/dL (31.5-36.5); Mean Corpuscular Volume 88 fL (80-100); NEUTROPHILS ABSOLUTE AUTO 9.59 K/mm3 (1.96-9.15); NEUTROPHILS PERCENT AUTO 86 % (41-73); NRBC ABSOLUTE 0.00 K/mm3 (0.00-0.02); NRBC Auto 0.0 /100 WBC (0.0-0.2); Platelet Count 245 K/mm3 (150-400); RDW Coefficient Variation 13.6 % (11.7-14.2); RDW Standard Deviation 44.1 fL (35.1-46.3)
[2025-05-15] MEDS ORDERED: Ketorolac Tromethamine 30mg Vial IV ONE (11:40)
[2025-05-15 11:54] LABS: Alanine Aminotransfer (ALT/SGP 32.0 U/L (12-78); Albumin, Blood 3.1 g/dL (3.4-5.0); Albumin/Globulin Ratio 0.6 (0.8-1.8); Anion Gap 11.0 mmol/L (3-11); Aspartate Aminotrans (AST/SGOT 31.0 U/L (12-37); Bilirubin, Total 1.7 mg/dL (0.1-1.0); Blood Urea Nitrogen 23.0 mg/dL (8-24); CO2, Blood 22.0 mmol/L (21-32); Calcium, Blood 9.2 mg/dL (8.5-10.1); Chloride, Blood 104.0 mmol/L (98-108); Creatinine, Blood 0.89 mg/dL (0.40-1.00); Globulin, Blood 5.0 g/dL (2.2-4.0); Glucose, Blood 143.0 mg/dL (70-99); Magnesium, Blood 2.0 mg/dL (1.6-2.4); Potassium, Blood 3.6 mmol/L (3.5-5.5); Sodium, Blood 133.0 mmol/L (136-145); Total Protein, Blood 8.1 g/dL (6.4-8.2)
[2025-05-15 12:41] LABS: Source, Urine Clean Catch
[2025-05-15 12:45] LABS: Bilirubin, Urine Neg (Neg); Color, Urine Yellow (P-Yellow); Glucose Qualitative, Urine Neg (Neg); Ketones, Urine Neg (Neg); Leukocyte Esterase, Urine 3+ (Neg); Protein, Urine 3+ (Neg); Specific Gravity, Urine 1.015 (1.003-1.022); Urobilinogen, Urine 2+ (Normal)
[2025-05-15 12:45] LABS: Influenza A, PCR NEGATIVE (NEGATIVE); Influenza B, PCR NEGATIVE (NEGATIVE); Resp Syncytial Virus, PCR NEGATIVE (NEGATIVE); SARS-Cov-2 (COVID-19) PCR, MMC NEGATIVE (NEGATIVE)
[2025-05-15 13:03] LABS: White Blood Cells, Urine 50-100 /hpf (0-5)
[2025-05-15] MEDS ORDERED: NS 1,000 ML IV SCH ×2 (13:25→14:45)
[2025-05-15] MEDS ORDERED: CefTRIAXone Sodium 1,000 MG in NS 50 ML IV ONE (13:25)
[2025-05-15] MEDS ORDERED: FLU VACC TS2025(65UP)/MF59C/PF 45 MCG/0.5 ML SYRINGE IM SCH (14:45)
[2025-05-15] MEDS ORDERED: Albuterol 2.5 MG/3 ML VIAL INH PRN (14:55)
[2025-05-15 17:32] VITALS: BP 120/73
[2025-05-15] MEDS ORDERED: Cranberry Extract 250MG W/30 MG Vitamin C Tab PO SCH (18:00)
--- NOTE | 2025-05-15 19:21 | NUR ---
PT ARRIVED VIA STRETCHER FROM ER, TRANSFERRED VIA SLIDER SHEET INTO BED. ALERT AND ORIENTED X3, IVF INFUSING TO LEFT FA, PUR WICK IN PLACE AND CONNECTED TO WALL SUCTION. PT DENIES ABDOMINAL PAIN BUT STATES SHE IS NOT HUNGRY WHEN MEAL TRAY IS PLACED IN FRONT OF HER. ZOFRAN X1 DOSE GIVEN DUE TO PT HAVING EMESIS-BILE DARK YELLOW IN COLOR. CALL LIGHT USE REVIEWED WITH PT AND BED ALARM ON. LIVE AT [facility], USES FWW-WHICH FAMILY PLANS TO BRING IN TOMMOROW.
[2025-05-15 19:26] VITALS: BP 120/95
--- NOTE | 2025-05-15 19:33 | NUR ---
reported temp of 104.6 temp, removed extra blankets and heating pad , will recheck in an hour to make sure it was an accurate temperature.
[2025-05-15] MEDS ORDERED: Ondansetron HCl 2 MG / ML 2ML Vial IV PRN (20:10)
[2025-05-15] MEDS ORDERED: Ketorolac Tromethamine 15mg Vial IV ONE (21:00)
[2025-05-15] MEDS ORDERED: LINZESS145 MCG PO (21:56)
[2025-05-15] MEDS ORDERED: MIRALAX17 GM PO (21:58)
[2025-05-15] MEDS ORDERED: AMBIEN5 MG PO (22:00)
--- NOTE | 2025-05-16 03:03 | NUR ---
Patient alert and oriented but very forgetful, answers orientation questions appropriately but cant answer questions about her medications, temp 104.2 at shift change notified doctor, new orders obtained, blood cultures obtained, lungs clear, states nausea medications helped that were given by day shift nurse at shift change, swallowed oral medication whole with water, iv flluids infusing per orders, second bag hung, purewick in place draining, yellow urine, educated continuous washer operator system, instructed not to get up by herself always call for help, uses rolling walker at [facility], call light in reach, bed in low andlocked position, call light in reach, will continue to monitor.
[2025-05-16 04:06] VITALS: BP 92/34
[2025-05-16 05:09] LABS: BASOPHILS ABSOLUTE AUTO 0.06 K/mm3 (0.00-0.23); BASOPHILS PERCENT AUTO 0 % (0-2); EOSINOPHILS ABSOLUTE AUTO 0.14 K/mm3 (0.00-0.68); EOSINOPHILS PERCENT AUTO 1 % (0-6); Hematocrit 26.9 % (33.0-51.0); Hemoglobin 9.1 g/dL (11.5-16.0); IMMATURE GRAN ABSOLUTE AUTO 0.06 K/mm3 (0.00-0.10); IMMATURE GRAN PERCENT AUTO 0 % (0-1); LYMPHOCYTES ABSOLUTE AUTO 1.18 K/mm3 (0.84-5.20); LYMPHOCYTES PERCENT AUTO 7 % (21-46); MONOCYTES ABSOLUTE AUTO 0.72 K/mm3 (0.16-1.47); MONOCYTES PERCENT AUTO 4 % (4-13); Mean Corpuscular HGB Conc 33.8 g/dL (31.5-36.5); Mean Corpuscular Volume 90 fL (80-100); NEUTROPHILS ABSOLUTE AUTO 14.37 K/mm3 (1.96-9.15); NEUTROPHILS PERCENT AUTO 87 % (41-73); NRBC ABSOLUTE 0.00 K/mm3 (0.00-0.02); NRBC Auto 0.0 /100 WBC (0.0-0.2); Platelet Count 175 K/mm3 (150-400); RDW Coefficient Variation 13.7 % (11.7-14.2); RDW Standard Deviation 45.1 fL (35.1-46.3)
[2025-05-16 05:41] LABS: Alanine Aminotransfer (ALT/SGP 27.0 U/L (12-78); Albumin, Blood 2.4 g/dL (3.4-5.0); Albumin/Globulin Ratio 0.6 (0.8-1.8); Anion Gap 10.0 mmol/L (3-11); Aspartate Aminotrans (AST/SGOT 37.0 U/L (12-37); Bilirubin, Total 0.9 mg/dL (0.1-1.0); Blood Urea Nitrogen 26.0 mg/dL (8-24); CO2, Blood 19.0 mmol/L (21-32); Calcium, Blood 7.7 mg/dL (8.5-10.1); Chloride, Blood 113.0 mmol/L (98-108); Creatinine, Blood 0.89 mg/dL (0.40-1.00); Globulin, Blood 3.8 g/dL (2.2-4.0); Glucose, Blood 111.0 mg/dL (70-99); Magnesium, Blood 1.8 mg/dL (1.6-2.4); Potassium, Blood 3.4 mmol/L (3.5-5.5); Sodium, Blood 139.0 mmol/L (136-145); Total Protein, Blood 6.2 g/dL (6.4-8.2)
[2025-05-16 07:35] VITALS: BP 101/43
[2025-05-16] MEDS ORDERED: Enoxaparin 40 MG/0.4 ML SYR SC SCH (09:00)
[2025-05-16] MEDS ORDERED: Cholecalciferol 1000 Unit Tablet (=25MCG) PO SCH (09:00)
[2025-05-16] MEDS ORDERED: Magnesium Hydroxide Conc 10 ML UDC PO SCH (09:00)
[2025-05-16 11:32] VITALS: BP 106/47
[2025-05-16] MEDS ORDERED: CefTRIAXone Sodium 1,000 MG in NS 100 ML IV SCH (12:00)
[2025-05-16 14:29] LABS: BASOPHILS ABSOLUTE AUTO 0.07 K/mm3 (0.00-0.23); BASOPHILS PERCENT AUTO 1 % (0-2); EOSINOPHILS ABSOLUTE AUTO 0.10 K/mm3 (0.00-0.68); EOSINOPHILS PERCENT AUTO 1 % (0-6); Hematocrit 29.1 % (33.0-51.0); Hemoglobin 9.5 g/dL (11.5-16.0); IMMATURE GRAN ABSOLUTE AUTO 0.05 K/mm3 (0.00-0.10); IMMATURE GRAN PERCENT AUTO 0 % (0-1); LYMPHOCYTES ABSOLUTE AUTO 1.34 K/mm3 (0.84-5.20); LYMPHOCYTES PERCENT AUTO 10 % (21-46); MONOCYTES ABSOLUTE AUTO 0.62 K/mm3 (0.16-1.47); MONOCYTES PERCENT AUTO 4 % (4-13); Mean Corpuscular HGB Conc 32.6 g/dL (31.5-36.5); Mean Corpuscular Volume 94 fL (80-100); NEUTROPHILS ABSOLUTE AUTO 11.76 K/mm3 (1.96-9.15); NEUTROPHILS PERCENT AUTO 84 % (41-73); NRBC ABSOLUTE 0.00 K/mm3 (0.00-0.02); NRBC Auto 0.0 /100 WBC (0.0-0.2); Platelet Count 165 K/mm3 (150-400); RDW Coefficient Variation 14.2 % (11.7-14.2); RDW Standard Deviation 48.9 fL (35.1-46.3)
[2025-05-16 14:54] LABS: Alanine Aminotransfer (ALT/SGP 28.0 U/L (12-78); Albumin, Blood 2.3 g/dL (3.4-5.0); Albumin/Globulin Ratio 0.5 (0.8-1.8); Anion Gap 8.0 mmol/L (3-11); Aspartate Aminotrans (AST/SGOT 42.0 U/L (12-37); Bilirubin, Total 0.4 mg/dL (0.1-1.0); Blood Urea Nitrogen 31.0 mg/dL (8-24); CO2, Blood 19.0 mmol/L (21-32); Calcium, Blood 7.6 mg/dL (8.5-10.1); Chloride, Blood 109.0 mmol/L (98-108); Creatinine, Blood 0.88 mg/dL (0.40-1.00); Globulin, Blood 4.2 g/dL (2.2-4.0); Glucose, Blood 112.0 mg/dL (70-99); Potassium, Blood 4.5 mmol/L (3.5-5.5); Sodium, Blood 131.0 mmol/L (136-145); Total Protein, Blood 6.5 g/dL (6.4-8.2)
[2025-05-16 15:07] VITALS: BP 106/47
--- NOTE | 2025-05-16 17:46 | NUR ---
PT ALERT AND ORIENTED- NOT ACCURATE ON DATE, TAKES MEDICATIONS WHOLE BUT MAY NEED APPLESAUCE AT TIMES, ON ABX FOR UTI, CONTINUES TO HAVE SEMI LOOSE BM'S. TOLERATED ORAL INTAKE- AND DID NOT VOMIT FOOD THIS SHIFT. ORAL POTASSIUM MADE PT NAUSEOUS-ZOFRAN X1 DOSE GIVEN, NO FEVERS THIS SHIFT,BP >100 SYSTOLIC. BED ALARM, CALL LIGHT IN REACH, ROUNDING FOR PT NEEDS.
[2025-05-16 19:37] VITALS: BP 122/55
--- NOTE | 2025-05-17 05:43 | NUR ---
SHIFT SUMMARY PATIENT ADMITTED FOR GENERALIZED WEAKNESS/UTI. ALERT AND ORIENTED X3. NO ACUTE OVERNIGHT EVENTS. PATIENT RESTING INTERMITTENLY THROUGHOUT THE SHIFT. BED IN LOWEST POSITION FOR SAFETY. BED ALARM ON. CALL LIGHT WITHIN REACH.
[2025-05-17 07:48] VITALS: BP 139/56
[2025-05-17 09:56] LABS: BASOPHILS ABSOLUTE AUTO 0.04 K/mm3 (0.00-0.23); BASOPHILS PERCENT AUTO 1 % (0-2); EOSINOPHILS ABSOLUTE AUTO 0.11 K/mm3 (0.00-0.68); EOSINOPHILS PERCENT AUTO 2 % (0-6); Hematocrit 27.9 % (33.0-51.0); Hemoglobin 9.7 g/dL (11.5-16.0); IMMATURE GRAN ABSOLUTE AUTO 0.02 K/mm3 (0.00-0.10); IMMATURE GRAN PERCENT AUTO 0 % (0-1); LYMPHOCYTES ABSOLUTE AUTO 0.71 K/mm3 (0.84-5.20); LYMPHOCYTES PERCENT AUTO 12 % (21-46); MONOCYTES ABSOLUTE AUTO 0.22 K/mm3 (0.16-1.47); MONOCYTES PERCENT AUTO 4 % (4-13); Mean Corpuscular HGB Conc 34.8 g/dL (31.5-36.5); NEUTROPHILS ABSOLUTE AUTO 5.02 K/mm3 (1.96-9.15); NEUTROPHILS PERCENT AUTO 82 % (41-73); NRBC ABSOLUTE 0.00 K/mm3 (0.00-0.02); NRBC Auto 0.0 /100 WBC (0.0-0.2); Platelet Count 172 K/mm3 (150-400); RDW Coefficient Variation 13.9 % (11.7-14.2); RDW Standard Deviation 45.4 fL (35.1-46.3)
[2025-05-17 09:57] LABS: Mean Corpuscular Volume 88 fL (80-100)
[2025-05-17 10:21] LABS: Alanine Aminotransfer (ALT/SGP 25.0 U/L (12-78); Albumin, Blood 2.1 g/dL (3.4-5.0); Albumin/Globulin Ratio 0.5 (0.8-1.8); Anion Gap 8.0 mmol/L (3-11); Aspartate Aminotrans (AST/SGOT 39.0 U/L (12-37); Bilirubin, Total 0.4 mg/dL (0.1-1.0); Blood Urea Nitrogen 18.0 mg/dL (8-24); CO2, Blood 19.0 mmol/L (21-32); Calcium, Blood 7.9 mg/dL (8.5-10.1); Chloride, Blood 112.0 mmol/L (98-108); Creatinine, Blood 0.69 mg/dL (0.40-1.00); Globulin, Blood 4.1 g/dL (2.2-4.0); Glucose, Blood 142.0 mg/dL (70-99); Potassium, Blood 4.3 mmol/L (3.5-5.5); Sodium, Blood 135.0 mmol/L (136-145); Total Protein, Blood 6.2 g/dL (6.4-8.2)
[2025-05-17] MEDS ORDERED: NS 250 ML IV PRN (12:30)
[2025-05-17] MEDS ORDERED: DOCU100 PO (13:20)
[2025-05-17] MEDS ORDERED: KOURZEQ5 GM TOP (13:25)
[2025-05-17] MEDS ORDERED: ACET325 PO (14:13)
[2025-05-17] MEDS ORDERED: BISA10S PR (14:14)
[2025-05-17] MEDS ORDERED: LOPE2C PO (14:20)
[2025-05-17] MEDS ORDERED: Calcium Carbon500 MG PO (14:55)
[2025-05-17 15:47] VITALS: BP 128/57
--- NOTE | 2025-05-17 16:44 | NUR ---
PT A/OX4. PLEASANT AND COOPERATIVE WITH CARE. PT IS A SBA WITH FWW/GB. SHE IS INCONTINENT AT TIMES. NO REPORTS OF PAIN/NAUSEA THIS SHIFT. PT RESTING IN BED, CHEST RISE AND FALL IS SYMMETRICAL. CALL LIGHT IS IN REACH. NO ACUTE NEEDS AT THIS TIME.
[2025-05-17 19:25] VITALS: BP 145/64
[2025-05-18 04:16] VITALS: BP 147/59
--- NOTE | 2025-05-18 04:37 | NUR ---
SHIFT SUMMARY PATIENT ADMITTED FOR GENERALIZED WEAKNESS AND UTI. PATIENT ALERT AND ORIENTED X3. PATIENT RESTED THROUGHOUT THE SHIFT. NO ACUTE OVERNIGHT EVENTS. BED RAILS UP X2. BED IN LOWEST POSITION FOR SAFETY. CALL LIGHT WITHIN REACH.
[2025-05-18 05:23] LABS: BASOPHILS ABSOLUTE AUTO 0.05 K/mm3 (0.00-0.23); BASOPHILS PERCENT AUTO 1 % (0-2); EOSINOPHILS ABSOLUTE AUTO 0.17 K/mm3 (0.00-0.68); EOSINOPHILS PERCENT AUTO 5 % (0-6); Hematocrit 29.4 % (33.0-51.0); Hemoglobin 10.0 g/dL (11.5-16.0); IMMATURE GRAN ABSOLUTE AUTO 0.01 K/mm3 (0.00-0.10); IMMATURE GRAN PERCENT AUTO 0 % (0-1); LYMPHOCYTES ABSOLUTE AUTO 0.65 K/mm3 (0.84-5.20); LYMPHOCYTES PERCENT AUTO 19 % (21-46); MONOCYTES ABSOLUTE AUTO 0.31 K/mm3 (0.16-1.47); MONOCYTES PERCENT AUTO 9 % (4-13); Mean Corpuscular HGB Conc 34.0 g/dL (31.5-36.5); Mean Corpuscular Volume 90 fL (80-100); NEUTROPHILS ABSOLUTE AUTO 2.29 K/mm3 (1.96-9.15); NEUTROPHILS PERCENT AUTO 66 % (41-73); NRBC ABSOLUTE 0.00 K/mm3 (0.00-0.02); NRBC Auto 0.0 /100 WBC (0.0-0.2); Platelet Count 207 K/mm3 (150-400); RDW Coefficient Variation 14.0 % (11.7-14.2); RDW Standard Deviation 46.4 fL (35.1-46.3)
[2025-05-18 05:48] LABS: Alanine Aminotransfer (ALT/SGP 27.0 U/L (12-78); Albumin, Blood 2.2 g/dL (3.4-5.0); Albumin/Globulin Ratio 0.5 (0.8-1.8); Anion Gap 7.0 mmol/L (3-11); Aspartate Aminotrans (AST/SGOT 38.0 U/L (12-37); Bilirubin, Total 0.4 mg/dL (0.1-1.0); Blood Urea Nitrogen 13.0 mg/dL (8-24); CO2, Blood 22.0 mmol/L (21-32); Calcium, Blood 8.1 mg/dL (8.5-10.1); Chloride, Blood 111.0 mmol/L (98-108); Creatinine, Blood 0.63 mg/dL (0.40-1.00); Globulin, Blood 4.1 g/dL (2.2-4.0); Glucose, Blood 97.0 mg/dL (70-99); Potassium, Blood 4.4 mmol/L (3.5-5.5); Sodium, Blood 136.0 mmol/L (136-145); Total Protein, Blood 6.3 g/dL (6.4-8.2)
[2025-05-18 07:32] VITALS: BP 171/103
[2025-05-18 09:03] VITALS: BP 129/56
--- NOTE | 2025-05-18 13:14 | NUR ---
PT DISCHARGED BACK TO [facility] TODAY. SHE WAS TAKEN OUT OF THE [facility] VIA W/C, TRANSPORTED BY HER DAUGHTER. DISCHARGE EDUCATION ON F/U APPOINTMENTS AND UTIS WAS PROVIDED TO THE PATIENT, PT VERBALIZED UNDERSTANDING.
== END 2025-05-18 13:07 | disposition home health service (06) | DRG 872 ==
LOC: ER 10:42 → MEDS 14:39
PROVIDERS: Family Medicine; Student in an Organized Health Care Education/Training Program; ADMIT Internal Medicine
DX: A41.51 Sepsis due to Escherichia coli [E. coli] (principal); N39.0 Urinary tract infection, site not specified; F33.9 Major depressive disorder, recurrent, unspecified; E87.1 Hypo-osmolality and hyponatremia; I10 Essential (primary) hypertension; Z66 Do not resuscitate; Z60.2 Problems related to living alone; E78.00 Pure hypercholesterolemia, unspecified; M32.9 Systemic lupus erythematosus, unspecified; R00.0 Tachycardia, unspecified; I12.9 Hypertensive chronic kidney disease with stage 1 through stage 4 chronic kidney disease, or unspecified chronic kidney disease; N18.2 Chronic kidney disease, stage 2 (mild); M06.9 Rheumatoid arthritis, unspecified; M81.0 Age-related osteoporosis without current pathological fracture; D63.1 Anemia in chronic kidney disease; K59.09 Other constipation; F51.04 Psychophysiologic insomnia; R32 Unspecified urinary incontinence; F03.90 Unspecified dementia, unspecified severity, without behavioral disturbance, psychotic disturbance, mood disturbance, and anxiety; K76.0 Fatty (change of) liver, not elsewhere classified; Z87.81 Personal history of (healed) traumatic fracture; Z90.49 Acquired absence of other specified parts of digestive tract; Z85.048 Personal history of other malignant neoplasm of rectum, rectosigmoid junction, and anus; Z98.51 Tubal ligation status; Z98.890 Other specified postprocedural states; Z87.891 Personal history of nicotine dependence; Z79.899 Other long term (current) drug therapy
CPT/HCPCS: 36415; 51701; 74177; 80053; 81001; 83605; 83690; 83735; 85025; 87040; 87077; 87086; 87186; 87637; 93005; 93010; 94760; 96365-59; 96375-59; 99285-25; A9270; J0696; J1650; J1885; J2405; J7030; J7050; Q9967

== ENCOUNTER → 2025-06-21 | Outpatient (CLI) | payer MEDICARE, OTHER ==
[~2025-06-21] MED LIST changes: +ACET325 PO; +AMBIEN5 MG PO; +BENADRYL25 MG PO; +BISA10S PR; +Calcium Carbon500 MG PO; +DOCU100 PO; +DULCOLAX400 MG/5 M PO; +KOURZEQ5 GM TOP; +LINZESS145 MCG PO; +LOPE2C PO
[2025-06-21 17:40] LABS: Source, Urine Clean Catch
[2025-06-21 20:33] LABS: Bilirubin, Urine Neg (Neg); Color, Urine Yellow (P-Yellow); Glucose Qualitative, Urine Neg (Neg); Ketones, Urine Neg (Neg); Leukocyte Esterase, Urine 2+ (Neg); Protein, Urine 1+ (Neg); Specific Gravity, Urine 1.015 (1.003-1.022); Urobilinogen, Urine 2+ (Normal)
== END | disposition home or self-care (01) ==
LOC: LAB SHORT 11:45 → LAB 11:45
PROVIDERS: Student in an Organized Health Care Education/Training Program
DX: N39.0 Urinary tract infection, site not specified (principal)
CPT/HCPCS: 81001; 87086